=== PATIENT | male | born 1945 | race Caucasian/White ===

== ENCOUNTER 2017-10-29 10:12 | Emergency (ER) | payer BC ==
[~2017-10-29] VITALS: Ht 185.4 cm; Wt 117.9 kg
[~2017-10-29 10:12] MED LIST: ALBUTEROL INH INH; CARBIDOPA/LEVO1 TA1 PO; CARDIZEM CD120 MG PO; COUMADIN 5 MG TA5 M1 PO; COZAAR100 MG PO; DIOVAN; FLOMAX0.4 MG PO; GLUCOTROL XL2.5 MG; GLUMETZA500; HYTRIN 5 M5 MG/1 CAP PO; KEFLEX500 MG PO; LANOXIN 0.250.25 MG PO; LEXAPRO 10 MG T10 M2 PO; LOPRESSOR 50 MG50 M1; LOPRESSOR 50 MG50 M1 PO; LOVASTAT40; LYRICA 75 MG CA75 MG PO; METFORMIN HCL500 M2 PO; MEVACOR40 MG PO; PROSCAR 5MG TABL5 MG PO; REQUIP 1 MG TABL1 M1 PO; SINEMET 25-1001 EAC1 PO; TOPROL XL50 MG PO; TRIAMTERENE-HC1 EAC1 PO; VERAPAMIL HCL180 M4 PO; VITAMIN B-12500 MCG PO
[2017-10-29 11:03] LABS: ABSOLUTE LYMPHOCYTES 2.2 thou/uL (0.8-5.3); ABSOLUTE MONOCYTES 0.4 thou/uL (0.0-1.2); ABSOLUTE NEUTROPHILS 3.5 thou/uL (1.6-8.1); BASOPHILS 0.4 %; EOSINOPHILS 0.7 %; HEMATOCRIT 41.6 % (42.0-52.0); HEMOGLOBIN 14.3 gm/dL (14.0-18.0); LYMPHOCYTES 35.5 %; MCH 30.9 pg (26.0-34.0); MCHC 34.3 g/dL (28.0-37.0); MONOCYTES 7.2 %; MPV 8.5 fl. (7.2-11.1); NUCLEATED RBCS 0 /100WBC; PLATELET COUNT* 186 thou/uL (150-400); POLYS 56.2 %; RBC 4.63 mil/uL (4.50-6.00); RDW-CV 14.1 % (10.5-14.5); WBC 6.2 thou/uL (4.0-11.0)
[2017-10-29 11:09] LABS: ANION GAP 12 mmol/L (7-16); BUN 17 mg/dL (7-18); CHLORIDE 106 mmol/L (98-107); CO2 24 mmol/L (21-32); CREATININE 0.7 mg/dL (0.6-1.3); GLUCOSE 135 mg/dL (70-99); POTASSIUM 3.5 mmol/L (3.5-5.1); SODIUM 142 mmol/L (136-145)
[2017-10-29 11:11] LABS: PROTIME 28.4 Seconds (9.20-11.50)
[2017-10-29 11:21] LABS: ALBUMIN 3.8 g/dL (3.4-5.0); ALKALINE PHOSPHATASE 70 U/L (46-116); NT-PRO BRAIN NAT PEPTIDE 531 pg/mL (<300); SGOT 20 U/L (15-37); SGPT 13 U/L (30-65); TOTAL BILIRUBIN 0.6 mg/dL (<0.1-1.0); TOTAL PROTEIN 7.5 g/dL (6.4-8.2); TROPONIN-I LEVEL <0.06 ng/mL (<0.06)
[2017-10-29 12:17] LABS: URINE BILIRUBIN NEGATIVE (Negative); URINE BLOOD NEGATIVE (Negative); URINE CLARITY CLEAR; URINE COLOR YELLOW; URINE GLUCOSE-RANDOM TRACE (Negative); URINE KETONES NEGATIVE (Negative); URINE LEUKOCYTES-REFLEX NEGATIVE (Negative); URINE NITRITE-REFLEX NEGATIVE (Negative); URINE PROTEIN TRACE (Negative)
[2017-10-29 13:44] VITALS: BP 130/81
--- NOTE | 2017-10-29 17:31 | EKG ---
[place] [address] ELECTROCARDIOGRAM REPORT Name: HANG ALFORD [id number] Admission: 10/29/17 Attend Phys: Discharge: 10/29/17 Date of : 47 Report #: [id number] THIS REPORT FOR: //name// [facility] ED Test Date: 2017-10-29 Test Time: 10:25:46 Pat Name: HANG ALFORD Department: Room: Gender: M Computer Systems Technician: Kenzie SANCHES : 1945 Requested By: Jg Solis Order Number: [id number] MD: Sukhjinder Liu Measurements Intervals [place] Rate: 94 P: [place]: QRS: 0 QRSD: 117 T: 70 QT: 380 QTc: 476 Interpretive Statements Atrial fibrillation Nonspecific intraventricular conduction delay Compared to ECG 04/30/2017 19:31:13 No significant changes Electronically Signed On 10-29-2017 17:31:34 FINISHING TECHNICIAN by Sukhjinder Liu [email or web address] <ELECTRONICALLY SIGNED> By: Sukhjinder Liu MD, [facility] 10/29/17 1731 1025 1025 Sukhjinder Liu MD, FACC /EPI
== END 2017-10-29 13:45 | disposition home or self-care (01) ==
LOC: M.ERS 10:12
PROVIDERS: Physician Assistant
DX: R06.02 Shortness of breath (principal); M79.622 Pain in left upper arm; I10 Essential (primary) hypertension; E11.9 Type 2 diabetes mellitus without complications; I48.91 Unspecified atrial fibrillation; Z98.890 Other specified postprocedural states

== ENCOUNTER 2017-11-27 21:15 | Emergency (ER) | payer BC ==
[~2017-11-27] VITALS: Ht 182.9 cm; Wt 99.8 kg
[2017-11-27 21:48] LABS: ABSOLUTE EOSINOPHILS 0.1 thou/uL (0.0-0.7); ABSOLUTE LYMPHOCYTES 2.6 thou/uL (0.8-5.3); ABSOLUTE MONOCYTES 0.5 thou/uL (0.0-1.2); BASOPHILS 0.6 %; EOSINOPHILS 1.9 %; HEMATOCRIT 40.3 % (42.0-52.0); HEMOGLOBIN 13.7 gm/dL (14.0-18.0); LYMPHOCYTES 41.4 %; MCH 31.1 pg (26.0-34.0); MCHC 34.1 g/dL (28.0-37.0); MCV 91.2 fL (80.0-100.0); MONOCYTES 8.5 %; MPV 8.4 fl. (7.2-11.1); NUCLEATED RBCS 0 /100WBC; PLATELET COUNT* 178 thou/uL (150-400); POLYS 47.6 %; RBC 4.41 mil/uL (4.50-6.00); RDW-CV 14.3 % (10.5-14.5); WBC 6.4 thou/uL (4.0-11.0)
[2017-11-27 22:00] LABS: ANION GAP 7 mmol/L (7-16); BUN 17 mg/dL (7-18); CALCIUM 8.6 mg/dL (8.5-10.1); CHLORIDE 106 mmol/L (98-107); CO2 31 mmol/L (21-32); CREATININE 0.8 mg/dL (0.6-1.3); GLUCOSE 147 mg/dL (70-99); POTASSIUM 3.9 mmol/L (3.5-5.1); SODIUM 144 mmol/L (136-145)
[2017-11-27 22:07] LABS: INR 1.8; PROTIME 17.8 Seconds (9.20-11.50)
[2017-11-27 22:14] LABS: ALBUMIN 3.5 g/dL (3.4-5.0); ALKALINE PHOSPHATASE 64 U/L (46-116); LIPASE 138 U/L (73-393); NT-PRO BRAIN NAT PEPTIDE 666 pg/mL (<300); SGOT 9 U/L (15-37); SGPT 8 U/L (30-65); TOTAL BILIRUBIN 0.4 mg/dL (<0.1-1.0); TOTAL PROTEIN 6.9 g/dL (6.4-8.2); TROPONIN-I LEVEL <0.06 ng/mL (<0.06)
[2017-11-27 23:27] LABS: URINE COLOR YELLOW
[2017-11-27 23:28] LABS: URINE BILIRUBIN NEGATIVE (Negative); URINE BLOOD NEGATIVE (Negative); URINE CLARITY CLEAR; URINE GLUCOSE-RANDOM NEGATIVE (Negative); URINE KETONES TRACE (Negative); URINE LEUKOCYTES-REFLEX NEGATIVE (Negative); URINE NITRITE-REFLEX NEGATIVE (Negative); URINE PROTEIN NEGATIVE (Negative); URINE SPECIFIC GRAVITY 1.025 (1.005-1.030)
[2017-11-27 23:53] VITALS: BP 120/85
--- NOTE | 2017-11-28 16:35 | EKG ---
[place] [address] ELECTROCARDIOGRAM REPORT Name: HANG ALFORD [id number] Admission: 11/27/17 Attend Phys: Discharge: 11/27/17 Date of : 47 Report #: [id number] THIS REPORT FOR: //name// [facility] ED Test Date: 2017-11-27 Test Time: 21:25:00 Pat Name: HANG ALFORD Department: Room: Gender: M Infantry Operations Specialist: : 1945 Requested By: Olga Lidia Montalvo Order Number: [id number] MD: Claudio Bradley Measurements Intervals [place] Rate: 85 P: [place]: QRS: -5 QRSD: 133 T: 44 QT: 409 QTc: 487 Interpretive Statements Atrial fibrillation Nonspecific intraventricular conduction delay Compared to ECG 10/29/2017 10:25:46 No significant changes Electronically Signed On 11-28-2017 16:35:23 BIOLOGY LABORATORY ASSISTANT by Claudio Bradley [email or web address] <ELECTRONICALLY SIGNED> By: Sharonda Bradley MD, [facility] 11/28/17 1635 24 Sharonda Bradley MD, FACC /EPI
== END 2017-11-27 23:53 | disposition home or self-care (01) ==
LOC: M.ERS 21:15
PROVIDERS: Emergency Medicine
DX: F41.9 Anxiety disorder, unspecified (principal); I10 Essential (primary) hypertension; E11.9 Type 2 diabetes mellitus without complications; I48.91 Unspecified atrial fibrillation; G20 Parkinson's disease; G25.81 Restless legs syndrome

== ENCOUNTER 2018-01-08 19:39 | Emergency (ER) | payer BC ==
[~2018-01-08] VITALS: Ht 185.4 cm; Wt 115.7 kg
[2018-01-08] MEDS ORDERED: ATIVAN1 MG PO (19:47)
[2018-01-08 20:20] LABS: ABSOLUTE EOSINOPHILS 0.1 thou/uL (0.0-0.7); ABSOLUTE LYMPHOCYTES 2.7 thou/uL (0.8-5.3); ABSOLUTE MONOCYTES 0.5 thou/uL (0.0-1.2); ABSOLUTE NEUTROPHILS 3.3 thou/uL (1.6-8.1); BASOPHILS 0.6 %; EOSINOPHILS 1.5 %; HEMATOCRIT 38.7 % (42.0-52.0); HEMOGLOBIN 13.4 gm/dL (14.0-18.0); LYMPHOCYTES 40.8 %; MCH 31.2 pg (26.0-34.0); MCHC 34.6 g/dL (28.0-37.0); MCV 90.2 fL (80.0-100.0); MONOCYTES 7.3 %; MPV 8.1 fl. (7.2-11.1); NUCLEATED RBCS 0 /100WBC; PLATELET COUNT* 177 thou/uL (150-400); POLYS 49.8 %; RBC 4.28 mil/uL (4.50-6.00); RDW-CV 13.9 % (10.5-14.5); WBC 6.7 thou/uL (4.0-11.0)
[2018-01-08 20:47] LABS: ANION GAP 9 mmol/L (7-16); BUN 13 mg/dL (7-18); CALCIUM 8.7 mg/dL (8.5-10.1); CHLORIDE 104 mmol/L (98-107); CO2 29 mmol/L (21-32); CREATININE 0.8 mg/dL (0.6-1.3); GLUCOSE 108 mg/dL (70-99); POTASSIUM 3.7 mmol/L (3.5-5.1); SODIUM 142 mmol/L (136-145)
[2018-01-08 20:58] LABS: ALBUMIN 3.7 g/dL (3.4-5.0); ALKALINE PHOSPHATASE 68 U/L (46-116); NT-PRO BRAIN NAT PEPTIDE 533 pg/mL (<300); SGOT 18 U/L (15-37); SGPT 8 U/L (30-65); TOTAL BILIRUBIN 0.7 mg/dL (<0.1-1.0); TOTAL PROTEIN 7.1 g/dL (6.4-8.2); TROPONIN-I LEVEL <0.06 ng/mL (<0.06)
[2018-01-08 21:16] LABS: INR 4.7
[2018-01-08] MEDS ORDERED: PREDNISONE 20 M20 M1 PO (21:24)
[2018-01-08] MEDS ORDERED: SPACERADULT INH (21:24)
[2018-01-08] MEDS ORDERED: CEFUROXIME250 MG PO (21:24)
[2018-01-08] MEDS ORDERED: PROAIR HFA8.5 GM INH (21:24)
[2018-01-08 21:42] VITALS: BP 145/76
--- NOTE | 2018-01-09 12:38 | EKG ---
[place] [address] ELECTROCARDIOGRAM REPORT Name: HANG ALFORD Room: [facility]#: [id number] Admission: 01/08/18 Attend Phys: Discharge: 01/08/18 Date of : 47 Report #: [id number] THIS REPORT FOR: //name// [facility] ED Test Date: 2018-01-08 Test Time: 19:50:29 Pat Name: HANG ALFORD Department: Room: Gender: M Mixer Helper: : 1945 Requested By: Luisana Paz Order Number: [id number] MD: Christos Frausto Measurements Intervals [place] Rate: 70 P: [place]: QRS: -5 QRSD: 137 T: 47 QT: 438 QTc: 473 Interpretive Statements Atrial fibrillation Nonspecific intraventricular conduction delay Baseline wander in lead(s) V6 Compared to ECG 11/27/2017 21:25:00 No significant changes Electronically Signed On 01-09-2018 12:38:20 CDT by Christos Frausto [email or web address] <ELECTRONICALLY SIGNED> By: Christos Frausto MD, [facility] 01/09/18 1238 1950 1950 Christos Frausto MD, [facility] /EPI
== END 2018-01-08 21:44 | disposition home or self-care (01) ==
LOC: M.ERS 19:39
PROVIDERS: Nurse Practitioner Family
DX: J18.9 Pneumonia, unspecified organism (principal); R79.1 Abnormal coagulation profile; I10 Essential (primary) hypertension; E11.9 Type 2 diabetes mellitus without complications; I48.91 Unspecified atrial fibrillation; G20 Parkinson's disease; G25.81 Restless legs syndrome; F41.9 Anxiety disorder, unspecified

== ENCOUNTER 2018-09-28 14:44 | Observation (INO) | payer BC ==
[~2018-09-28] VITALS: Ht 185.4 cm; Wt 121.1 kg
[~2018-09-28 14:44] MED LIST changes: +ATIVAN1 MG PO; +CEFUROXIME250 MG PO; +PREDNISONE 20 M20 M1 PO; +PROAIR HFA8.5 GM INH; +SPACERADULT INH
[2018-09-28 14:55] VITALS: BP 150/89
[2018-09-28 15:38] LABS: ABSOLUTE LYMPHOCYTES 1.5 thou/uL (0.8-5.3); ABSOLUTE MONOCYTES 0.4 thou/uL (0.0-1.2); ABSOLUTE NEUTROPHILS 4.1 thou/uL (1.6-8.1); BASOPHILS 0.5 %; EOSINOPHILS 0.3 %; HEMATOCRIT 39.6 % (42.0-52.0); HEMOGLOBIN 13.6 gm/dL (14.0-18.0); MCH 31.2 pg (26.0-34.0); MCHC 34.4 g/dL (28.0-37.0); MCV 90.7 fL (80.0-100.0); MONOCYTES 6.3 %; MPV 8.3 fl. (7.2-11.1); NUCLEATED RBCS 0 /100WBC; PLATELET COUNT* 206 thou/uL (150-400); POLYS 67.9 %; RBC 4.37 mil/uL (4.50-6.00); RDW-CV 14.8 % (10.5-14.5)
[2018-09-28 15:47] LABS: CALCIUM 8.8 mg/dL (8.5-10.1); CREATININE 0.8 mg/dL (0.6-1.3); INR 3.3
[2018-09-28 15:57] LABS: ALBUMIN 3.3 g/dL (3.4-5.0); TOTAL BILIRUBIN 0.6 mg/dL (<0.1-1.0); TOTAL PROTEIN 6.7 g/dL (6.4-8.2)
[2018-09-28 16:37] LABS: URINE BILIRUBIN NEGATIVE (Negative); URINE BLOOD 3+ (Negative); URINE CLARITY CLEAR; URINE COLOR YELLOW; URINE GLUCOSE-RANDOM NEGATIVE (Negative); URINE KETONES NEGATIVE (Negative); URINE LEUKOCYTES-REFLEX NEGATIVE (Negative); URINE NITRITE-REFLEX NEGATIVE (Negative); URINE PROTEIN NEGATIVE (Negative); URINE SPECIFIC GRAVITY 1.025 (1.005-1.030)
[2018-09-28 16:47] LABS: BACTERIA-REFLEX 1-9 Few /HPF (None Seen); MUCUS 4-6 Moderate strn/LPF (None Seen); SQUAMOUS 4-10 Moderate /LPF (0-3); URINE WBC-REFLEX 0-5 Rare /HPF (0-5)
[2018-09-28 20:50] VITALS: BP 174/102
[2018-09-28 21:30] VITALS: BP 167/96
[2018-09-28] MEDS ORDERED: BENADRYL25 MG PO (21:31)
[2018-09-28] MEDS ORDERED: TYLENOL EXTRA500 MG PO (21:33)
[2018-09-28] MEDS ORDERED: LYRICA 50 MG50 MG PO (22:28)
--- NOTE | 2018-09-29 04:12 | NUR ---
RECEIVED REPORT FROM ANGI CALLE AT 2029. PT ARRIVED TO UNIT VIA CART AT 2100. NURSING ASSESSMENT COMPLETED. PT ORIENTED TO ROOM AND CALL LIGHT. PT C/O PAIN. MEDICATIONS ADMINISTERED PER EMAR. PT ASLEEP DURING PAIN REASSESSMENT. HOURLY ROUNDING COMPLETED. PT UP STAND BY WITH CANE. CALL LIGHT WITHIN REACH.
[2018-09-29 05:24] LABS: CALCIUM 8.8 mg/dL (8.5-10.1); CREATININE 0.7 mg/dL (0.6-1.3); POTASSIUM 3.2 mmol/L (3.5-5.1)
[2018-09-29 07:55] VITALS: BP 114/66
--- NOTE | 2018-09-29 10:30 | NUR ---
SW met with pt to complete initial assessment, introduce self, and SW role. Pt alert, oriented. Pt used to live with his son but now pt lives alone in a house of his own. Both he and his son live in [place]. Pt girlfriend also supportive. Pt has a cane. Pt maybe open to HH at dc if needed. SW to continue to follow to assist with safe dc planning.
[2018-09-29 16:00] VITALS: BP 131/73
--- NOTE | 2018-09-29 17:43 | NUR ---
PATIENT RESTING UP IN CHIAR. PATIENT IS UP STANDBY ASSIST TO BATHROOM. PATIENT WORKED WITH PHYSICAL AND OCCUPATIONAL THERAPY THIS AFTERNOON. PATIENT HAS GOOD APPETITE. PATIENT HAS HAD COMPLAINTS OF LOWER BACK PAIN TREATED ADEQUATELY WITH FLEXERIL. PATIENT DENIES ANY NEEDS AT THIS TIME. CALL LIGHT WITHIN REACH. WILL CONTINUE TO MONITOR.
[2018-09-29 20:00] VITALS: BP 141/69
[2018-09-30 04:16] LABS: HEMOGLOBIN 12.4 gm/dL (14.0-18.0); MCH 32.1 pg (26.0-34.0); MCHC 34.5 g/dL (28.0-37.0); MCV 93.1 fL (80.0-100.0); MPV 8.3 fl. (7.2-11.1); RBC 3.87 mil/uL (4.50-6.00); RDW-CV 15.1 % (10.5-14.5); WBC 6.1 thou/uL (4.0-11.0)
[2018-09-30 04:20] LABS: INR 2.3; PROTIME 23.3 Seconds (9.20-11.50)
[2018-09-30 04:26] LABS: CALCIUM 8.5 mg/dL (8.5-10.1); CREATININE 0.6 mg/dL (0.6-1.3); POTASSIUM 3.4 mmol/L (3.5-5.1)
--- NOTE | 2018-09-30 05:37 | NUR ---
ASSUMED PT CARE AT 1900, PT IS A&OX4, PT DENIES ANY PAIN OR NEEDS AT THIS TIME. RESTING IN BED. PT IS ON RA SATTING MID TO HIGH 90'S. BED IN LOW POSITION, CALL LIGHT IN REACH, BED ALARM ON, YELLOW ARM BAND AND SOCKS IN PLACE. HOURLY ROUNDING COMPLETED FOR PT SAFETY.
[2018-09-30 08:15] VITALS: BP 132/74
[2018-09-30] MEDS ORDERED: FLEXERIL PO (12:37)
--- NOTE | 2018-09-30 12:42 | NUR ---
SW met with pt to discuss dc planning. Pt requesting preference of [facility] services follow up at dc. SW to continue to follow to assist with finalizing safe dc planning and faxing referral and orders to [facility].
[2018-09-30 12:48] VITALS: BP 132/74
--- NOTE | 2018-09-30 14:10 | NUR ---
PATIENT DISCHARGED TO HOME WITH HOME HEALTH. DISCHARGE PAPERS REVIEWED AND SIGNED. PRESCRIPTION AND INFORMATION SHEETS GIVEN. IV REMOVED. PATIENT ASSISTED WITH GETTING DRESSED. HOME MEDICATIONS AND BELONGINGS RETURNED. PATIENT DENIES ANY FURTHER NEEDS. PATIENT TAKEN BY WHEELCHAIR TO EXIT. LEFT BY OWN VEHICLE.
--- NOTE | 2018-10-01 09:16 | NUR ---
PT. DISCHARGED TO HOME WITH HOME HEALTH PRIOR TO O.T. EVAL. PLEASE ORDER FURTHER O.T. SERVICES IF NEEDED.
== END 2018-09-30 14:10 | disposition home health service (06) ==
LOC: M.ERS 14:44 → M.TBA-ER 16:54 → M.3W 16:54
PROVIDERS: Family Medicine; Nurse Practitioner Family; ADMIT Internal Medicine
DX: M54.5 Low back pain (principal); I48.91 Unspecified atrial fibrillation; G20 Parkinson's disease; G25.81 Restless legs syndrome; F41.9 Anxiety disorder, unspecified; I10 Essential (primary) hypertension; R01.1 Cardiac murmur, unspecified; G89.29 Other chronic pain; E11.9 Type 2 diabetes mellitus without complications; M19.90 Unspecified osteoarthritis, unspecified site; Z79.899 Other long term (current) drug therapy; Z23 Encounter for immunization

== ENCOUNTER 2018-10-13 12:18 | Inpatient (IN) | payer BC ==
[~2018-10-13] VITALS: Ht 185.4 cm; Wt 122.5 kg
[~2018-10-13 12:18] MED LIST changes: +BENADRYL25 MG PO; +FLEXERIL PO; +LYRICA 50 MG50 MG PO; +TYLENOL EXTRA500 MG PO
[2018-10-13 12:23] VITALS: BP 163/95
[2018-10-13 15:35] LABS: URINE BILIRUBIN NEGATIVE (Negative); URINE BLOOD NEGATIVE (Negative); URINE CLARITY CLEAR; URINE COLOR YELLOW; URINE GLUCOSE-RANDOM NEGATIVE (Negative); URINE KETONES NEGATIVE (Negative); URINE LEUKOCYTES-REFLEX NEGATIVE (Negative); URINE PROTEIN NEGATIVE (Negative); URINE SPECIFIC GRAVITY >= 1.030 (1.005-1.030)
[2018-10-13 15:38] LABS: URINE NITRITE-REFLEX POSITIVE (Negative)
[2018-10-13 15:44] LABS: ABSOLUTE LYMPHOCYTES 1.2 thou/uL (0.8-5.3); ABSOLUTE MONOCYTES 0.5 thou/uL (0.0-1.2); ABSOLUTE NEUTROPHILS 6.4 thou/uL (1.6-8.1); BASOPHILS 0.6 %; EOSINOPHILS 0.2 %; HEMATOCRIT 38.2 % (42.0-52.0); HEMOGLOBIN 12.9 gm/dL (14.0-18.0); LYMPHOCYTES 14.6 %; MCHC 33.8 g/dL (28.0-37.0); MCV 91.7 fL (80.0-100.0); MONOCYTES 6.4 %; MPV 8.6 fl. (7.2-11.1); NUCLEATED RBCS 0 /100WBC; PLATELET COUNT* 194 thou/uL (150-400); POLYS 78.2 %; RBC 4.16 mil/uL (4.50-6.00); WBC 8.2 thou/uL (4.0-11.0)
[2018-10-13 15:45] LABS: SQUAMOUS NONE SEEN /LPF (0-3); URINE WBC-REFLEX None Seen /HPF (0-5)
[2018-10-13 15:46] LABS: BACTERIA-REFLEX 1-9 Few /HPF (None Seen); CASTS None Seen /LPF (None Seen); CRYSTALS None Seen /LPF (None Seen); URINE RBC 0-2 Rare /HPF (0-2)
[2018-10-13 16:04] LABS: CALCIUM 8.6 mg/dL (8.5-10.1); CREATININE 0.6 mg/dL (0.6-1.3); POTASSIUM 3.8 mmol/L (3.5-5.1)
[2018-10-13 16:09] LABS: ALBUMIN 3.5 g/dL (3.4-5.0); TOTAL BILIRUBIN 0.7 mg/dL (<0.1-1.0); TOTAL PROTEIN 6.8 g/dL (6.4-8.2)
[2018-10-13 16:56] VITALS: BP 148/77
[2018-10-13 17:39] VITALS: BP 152/81
--- NOTE | 2018-10-13 18:26 | NUR ---
PATIENT SITTING UP EATING DINNER AT THIS TIME. CHANGED INTO HOSPITAL GOWN. DR FRANCE SEEN PATIENT, NO PLANS FOR SURGERY AT THIS TIME, WILL KEEP PATIENT IN SLING AND SEE HOW PATIENT DOES. PAIN IS 2/10 AT THIS TIME BUT IS COMFORTABLE. NO OTHER COMPLAINTS. FALL PRECAUTIONS IN PLACE. CALL LIGHT IN REACH, BED IN LOW POSITION.
[2018-10-13 19:30] VITALS: BP 142/71
[2018-10-13 19:42] LABS: INR 2.4; PROTIME 24.1 Seconds (9.20-11.50)
[2018-10-14 03:41] LABS: HEMATOCRIT 33.9 % (42.0-52.0); HEMOGLOBIN 11.9 gm/dL (14.0-18.0); MCH 31.8 pg (26.0-34.0); MCHC 35.1 g/dL (28.0-37.0); MCV 90.7 fL (80.0-100.0); MPV 8.5 fl. (7.2-11.1); RBC 3.73 mil/uL (4.50-6.00); RDW-CV 15.2 % (10.5-14.5); WBC 6.4 thou/uL (4.0-11.0)
[2018-10-14 03:53] LABS: CALCIUM 8.2 mg/dL (8.5-10.1); CREATININE 0.6 mg/dL (0.6-1.3); MAGNESIUM 1.7 mg/dL (1.8-2.4); POTASSIUM 3.6 mmol/L (3.5-5.1)
[2018-10-14 05:00] VITALS: BP 146/71
--- NOTE | 2018-10-14 06:20 | NUR ---
PT PROGRESSING TOWARD GOALS. PT MAINTAINED LEFT ARM IN SLING FOR DURATION OF SHIFT. PT RECIEVING SCHEDULED FLEXARIL AND PRN FENTANYL WITH GOOD RESULTS. VITAL SIGNS WITHIN NORMAL LIMITS, WILL CONTINUE TO MONITOR.
[2018-10-14 08:00] VITALS: BP 129/70
--- NOTE | 2018-10-14 10:58 | CON ---
[address] [address] CONSULTATION Name: HANG ALFORD Room: [address] IN .R.#: [id number] Admission: 10/13/18 Attend Phys: Artem Rockwell MD Discharge: Date of : 47 Report #: [id number] THIS REPORT FOR: //name// CC: FAM unknown Artem Rockwell DATE OF SERVICE: 10/13/2018 HISTORY OF PRESENT ILLNESS: This 72-year-old male is seen complaining of acute pain of his left shoulder. He related that he fell getting into his shower at his residence sustaining his injury. He stated that he is a little unsteady on his feet secondary to Parkinson's disease. He feels that his Parkinson's disease is slowly getting worse. He presented to the Emergency Room where x-rays revealed a comminuted left distal clavicle fracture. He was placed into a sling. His past history, family history and review of systems were reviewed and are recorded in his medical record. PHYSICAL EXAMINATION: Today revealed marked tenderness about the left shoulder. He complained of pain upon any motion or manipulation. His x-rays were reviewed. It was felt that his comminuted distal clavicle fracture should be treated conservatively if at all possible. I would only favor operative treatment if his fracture is displaced significantly in the future. He will be followed while hospitalized and initially will be treated conservatively. He will be followed until his fracture has healed. DIAGNOSES: Comminuted left distal clavicle fracture, Parkinson's disease. Thank you very much for the opportunity of seeing the patient. <ELECTRONICALLY SIGNED> By: Aravind Foreman MD 10/14/18 1058 1758 0100Joanjana Foreman MD /nt
[2018-10-14 12:44] VITALS: BP 113/76
[2018-10-14 15:55] VITALS: BP 126/80
--- NOTE | 2018-10-14 18:35 | NUR ---
PT IS ALERT AND ORIENTED X 4. DENIES NAUSEA. RECEIVED PO MEDICATIONS FOR PAIN CONTROL. PT UP TO CHAIR WITH SBA X 2. USED SLING IN MORNING AND SHOULDER IMMOBILIZER PLACED IN AFTERNOON. IV PATENT. HOURLY ROUNDS MAINTAINED. CALL LIGHT WITHIN REACH.
[2018-10-14 21:00] VITALS: BP 156/83
[2018-10-15 05:11] LABS: HEMATOCRIT 34.4 % (42.0-52.0); HEMOGLOBIN 11.8 gm/dL (14.0-18.0); MCH 31.7 pg (26.0-34.0); MCHC 34.1 g/dL (28.0-37.0); MPV 8.4 fl. (7.2-11.1); RBC 3.7 mil/uL (4.50-6.00); RDW-CV 14.8 % (10.5-14.5); WBC 6.8 thou/uL (4.0-11.0)
[2018-10-15 05:16] LABS: INR 2.8; PROTIME 28.5 Seconds (9.20-11.50)
--- NOTE | 2018-10-15 06:49 | NUR ---
PATIENT HAS SLEPT WELL THROUGHOUT THE NIGHT. VSS ON RA. PAIN CONTROLLED WITH ORAL PAIN MEDICATION AND CHARTED. IMMOBILIZER TO LEFT ARM IS IN PLACE. PATIENT USING BEDSIDE URINAL DURING THE NIGHT. IV IN LEFT AC-SL. PATIENT INSTRUCTED TO USE CALL LIGHT WHEN NEEDING ASSISTANCE. HOURLY ROUNDS MADE. WILL CONTINUE WITH PLAN OF CARE AND NURSING TO MONITOR.
[2018-10-15 09:52] VITALS: BP 107/83
--- NOTE | 2018-10-15 11:30 | NUR ---
SPOKE WITH PT. HE WAS ALERT AND ORIENTED. STATED HE LIVES ALONE. WAS GETTING IN TO SHOWER WHEN HE FELL ONTO HIS LEFT SIDE AND FX HIS CLAVICLE. HE WOULD LIKE TO GO TO A SNF IF POSSIBLE UNTIL HE GETS STEADIER ON HIS FEET. FIRST CHOICE WOULD BE [facility] AND SECOND WOULD BE [facility]. MADE REFERRALS TO BOTH. WILL WAIT TO HEAR BACK FROM THEM.
[2018-10-15 12:00] VITALS: BP 136/81
--- NOTE | 2018-10-15 18:00 | NUR ---
ASSUMED CARE OF PATIENT AFTER REPORT AT APPROX 0730. ALERT AND ORIENTED X4. VSS ON ROOM AIR. NO COMPLAINTS OF PAIN, NAUSEA, OR SOA. PATIENT WORKED WITH THERAPIES TODAY. THIS AM HE REQUESTED TO HAVE THE IMMOBILIZER REMOVED AND USE THE SLING INSTEAD. CALLED DR FRANCE AND HE SAID THAT IT WAS OK TO REMOVE IMMOBILIZER AND HAVE HIM WEAR THE SLING. CASE MANAGEMENT HAS REFERRAL IN FOR SKILLED PLACEMENT, AWAITING INSURANCE APPROVAL. PATIENT REPEATEDLY CALLING OUT THROUGHOUT ENTIRE SHIFT TO USE COMMODE FOR A BOWEL MOVEMENT BUT HAS NOT BEEN SUCCESSFUL TODAY. UP TO CHAIR TODAY WITH GAIT BELT AND 1-2 STAFF. HOURLY ROUNDS COMPLETED. FALL PRECAUTIONS IN PLACE AND PATIENT USES CALL LIGHT APPROPRIATELY. NURSING WILL CONTINUE TO MONITOR.
[2018-10-15 20:00] VITALS: BP 143/78
--- NOTE | 2018-10-16 07:29 | NUR ---
Alert and oriented x 4. He has a L clavical fracture, it is in a sling and up on a pillow. He refused an ice pack. I did explain to him that he should have it in the immobilizer to heal better and faster. He had a pain pill and muscle relaxer at bedtime and he has slept all night.
[2018-10-16 07:45] VITALS: BP 161/82
--- NOTE | 2018-10-16 17:58 | NUR ---
ALERT AND ORIENTED X4. UP WITH ASSIST X1 WITH WALKER AND GAIT BELT. IV IS PATENT AND SALINE LOCKED. PAIN BEING MANAGED WITH PO PAIN MEDICATION. DENIES NAUSEA. RECIEVED LAXATIVE THIS AM WITH NO RESULTS AT THIS TIME. TOLERATING DIET. BLOOD SUGARS MANAGED PER SLIDING SCALE. VSS ON ROOM AIR. HOURLY ROUNDS HAVE BEEN MAINTAINED THROUGHOUT SHIFT. CALL LIGHT IS WITHIN REACH. NURSING WILL CONTINUE TO MONITOR.
[2018-10-16 20:45] VITALS: BP 166/71
--- NOTE | 2018-10-17 06:06 | NUR ---
PATIENT HAS BEEN RESTLESS OFF AND ON DURING THE NIGHT. PATIENT HAVING RESTLESS LEG DURING THE NIGHT. MEDICATIONS GIVEN ORDERED AND CHARTED. VSS ON RA. PATIENT IS UP WITH ASSIST X 2 WITH GAITBELT AND CANE TO [facility]. PATIENT REFUSES TO WEAR IMMOBILIZER AND REQUESTED TO UNDO SLING WHILE IN BED. PATIENT USES BEDSIDE URINAL AT NIGHT. IV IN LEFT AC-SL. PATIENT INSTRUCTED TO USE CALL LIGHT WHEN NEEDING ASSISTANCE. FALL PRECAUTIONS IN PLACE AND HOURLY ROUNDS MADE. WILL CONTINUE WITH PLAN OF CARE AND NURSING TO MONITOR.
[2018-10-17 08:50] VITALS: BP 159/82
[2018-10-17 12:23] LABS: INR 3.5; PROTIME 35.4 Seconds (9.20-11.50)
[2018-10-17 16:45] VITALS: BP 134/77
--- NOTE | 2018-10-17 18:25 | NUR ---
ALERT AND OREINTED X4. UP WITH ASSIST X1-2 WITH GAIT BELT AND CANE. IV IS PATENT AND SALINE LOCKED. DENIES NEED FOR PAIN MEDICATION THROUGHOUT SHIFT. DENIES NAUSEA. TOLERATING DIET. SLING IN PLACE. NWB STATUS MAINTAINED THROUGHOUT SHIFT. VSS ON ROOM AIR. HOURLY ROUNDS HAVE BEEN MAINTAINED THROGHOUT SHIFT. CALL LIGHT IS WITHIN REACH. NURSING WILL CONTINUE TO MONITOR.
[2018-10-17 20:40] VITALS: BP 151/76
[2018-10-18 04:14] LABS: INR 3.4; PROTIME 34.7 Seconds (9.20-11.50)
--- NOTE | 2018-10-18 06:11 | NUR ---
PATIENT HAS SLEPT WELL THROUGHOUT THE NIGHT. VSS ON RA. NO C/O PAIN. PATIENT STILL REFUSING TO WEAR IMMOBILIZER BUT DOES WEAR SLING ON LEFT ARM. IV IN LEFT AC-SL. PATIENT INSTRUCTED TO USE CALL LIGHT WHEN NEEDING ASSISTANCE. HOURLY ROUNDS MADE. WILL CONTINUE WITH PLAN OF CARE AND NURSING TO MONITOR.
--- NOTE | 2018-10-18 11:00 | NUR ---
CONTINUE TO FOLLOW, SPOKE ANMOL TYSON/HOSEA GUTEIRREZ. FAXED UPDATED CLINICAL TO HER. SHE IS STILL WAITING ON INSURANCE AUTH FOR SNF. ORDERS FOR DC NOTED, ALSO FAXED TO HOSEA GUTIERREZ. UPDATED PT ON AUTH PENDING. MARBELLA WILL CONTACT CM ONCE THEY HAVE AUTH AND CAN ACCEPT PT. ZACH GUTIERREZ [phone] FAX [phone]
--- NOTE | 2018-10-18 17:40 | NUR ---
PATIENT ALERT AND ORIENTED X 4. VITAL SIGNS STABLE ON ROOM AIR. AFEBRILE. UP WITH ASSISTANCE OF ONE. SAT UP IN CHAIR FOR MOST OF THE SHIFT. IV PATENT AND SALINE LOCKED. DENIES PAIN AND NAUSEA AT THIS TIME. FALL PRECAUTIONS IN PLACE AND BED ALARM ON. HOURLY ROUNDS MAINTAINED THROUGHOUT THE SHIFT. CALL LIGHT WITHIN REACH. NURSING WILL CONTINUE TO MONITOR.
[2018-10-18 20:20] VITALS: BP 162/86
[2018-10-19 04:20] LABS: PROTIME 40.1 Seconds (9.20-11.50)
--- NOTE | 2018-10-19 06:47 | NUR ---
PATIENT HAS SLEPT WELL THROUGHOUT THE NIGHT. VSS ON RA. NO C/O PAIN. PATIENT REQUESTED TO HAVE IMMOBILIZER REMOVED THIS AM. LEFT ARM IS CURRENTLY IN SLING. PATIENT IS UP TO CHAIR THIS AM. IV IN LEFT AC-SL. PATIENT INSTRUCTED TO USE CALL LIGHT WHEN NEEDING ASSISTANCE. HOURLY ROUNDS MADE. WILL CONTINUE WITH PLAN OF CARE AND NURSING TO MONITOR.
[2018-10-19 09:03] VITALS: BP 117/62
[2018-10-19 17:13] VITALS: BP 133/72
--- NOTE | 2018-10-19 17:30 | NUR ---
ASSUMED CARE OF PATIENT AFTER REPORT AT APPROX 0730. ALERT AND ORIENTED X4. VSS ON ROOM AIR. NO COMPLAINTS OF PAIN, NAUSEA, OR SOA. PATIENTS SHOULDER REMAINS IN SLING, REINFORCEMENT NEEDED TO MAINTAIN NON WEIGHT BEARING STATUS TO LEFT UPPER EXTREMITY. PATIENT UP WITH ASSIST OF 1-2 STAFF. VOIDING IN URINAL AND USING BEDSIDE COMMODE. HOURLY ROUNDS COMPLETED, FALL PRECAUTIONS IN PLACE, CALL LIGHT IN REACH, NURSING WILL CONTINUE TO MONITOR.
[2018-10-20 04:51] LABS: INR 4.3; PROTIME 43.4 Seconds (9.20-11.50)
--- NOTE | 2018-10-20 06:12 | NUR ---
PATIENT HAS SLEPT OFF AND ON DURING THE NIGHT BUT RESTLESS AT TIMES. VSS ON RA. NO C/O PAIN. SLING IN PLACE ON LEFT ARM. PATIENT IS UP WITH ASSIST X 1-2 WITH CANE TO CHAIR. PATIENT SPILLED URINAL DURING THE NIGHT AND COMPLETE BED CHANGE WAS PERFORMED AND NEW GOWN PLACED ON PATIENT. IV IN LEFT AC-SL. PATIENT INSTRUCTED TO USE CALL LIGHT WHEN NEEDING ASSISTANCE. HOURLY ROUNDS MADE. WILL CONTINUE WITH PLAN OF CARE AND NURSING TO MONITOR. FALL PRECAUTIONS IN PLACE.
[2018-10-20 09:22] VITALS: BP 134/75
--- NOTE | 2018-10-20 10:30 | NUR ---
SPOKE WITH SALENA/HOSEA GUTIERREZ. SHE SAID THEY ARE STILL WAITING ON INSURANCE AUTHORIZATION FOR SNF. THEY ONLY WAY THEY HAVE TO CONTACT AUTH DEPT.IS VIA EMAIL. SHE WILL HAVE HER BUSINESS OFFICE REACH OUT TO INS.AGAIN TODAY. SHE WILL CALL WHEN THEY HAVE AUTH. CM DISCUSSED WITH AND PT. PT.GETTING FRUSTRATED AT BEING HERE SO LONG.
[2018-10-20 10:46] VITALS: BP 134/75
[2018-10-20] MEDS ORDERED: PHENERGAN 25 MG25 M1 PO (11:05)
[2018-10-20] MEDS ORDERED: LAXATIVE5 M1 PO (11:06)
[2018-10-20] MEDS ORDERED: MILK OF MA2400 MG/10 PO (11:08)
[2018-10-20] MEDS ORDERED: MAALOX ADVANCE355 ML PO (11:09)
[2018-10-20] MEDS ORDERED: METFORMIN HCL500 MG PO (11:10)
[2018-10-20 16:00] VITALS: BP 140/72
--- NOTE | 2018-10-20 17:54 | NUR ---
ASSUMED CARE OF ADOLFO AFTER REPORT AT APPROX 0730. ALERT AND ORIENTED X4. ASSESSMENT COMPLETED AND CHARTED. VSS ON ROOM AIR. NO COMPLAINTS OF PAIN, NAUSEA, OR SOA. PATIENT UP WITH GAIT BELT AND CANE, USING THE RESTROOM TODAY. WORKED WITH THERAPIES TODAY. NEEDS REINFORCEMENT ON MAINTAINING NON WEIGHT BEARING STATUS OF LEFT UPPER EXTREMITY. PATIENT PREFERS TO WEAR SLING RATHER THAN IMMOBILIZER, DR FRANCE IS AWARE. HOURLY ROUNDS COMPLETED, FALL PRECAUTIONS IN PLACE. CALL LIGHT WITHIN REACH AND NURSING WILL CONTINUE TO MONITOR.
[2018-10-20 20:15] VITALS: BP 125/70
[2018-10-21 04:31] LABS: INR 4.1; PROTIME 41.1 Seconds (9.20-11.50)
--- NOTE | 2018-10-21 06:10 | NUR ---
PATIENT HAS BEEN RESTING THROUGHOUT THE NIGHT. VSS ON RA. NO C/O PAIN. PATIENT WEARING SLING TO LEFT ARM. PATIENT UP WITH ASSIST OF 1-2 WITH GAITBELT AND CANE. IV IN LEFT AC-SL. PATIENT INSTRUCTED TO USE CALL LIGHT WHEN NEEDING ASSISTANCE. HOURLY ROUNDS MADE. WILL CONTINUE WITH PLAN OF CARE AND NURSING TO MONITOR.
[2018-10-21 08:00] VITALS: BP 147/70
--- NOTE | 2018-10-21 15:43 | NUR ---
DURAN/[facility] GUTIERREZ SAID STILL NO RESPONSE FROM INSURANCE TODAY. CM CALLED CM FROM INSURANCE-BC BS OF JESSICA/PETER AND LEFT MESSAGE. SHE CALLED BACK AND SAID SHE DID NOT HAVE ANYTHING TO DO WITH NSG.HOME [employer] BUT GAVE CM URGENT FAX NUMBER FOR AUTH'S AND URGENT EMAIL. SHARED THESE NUMBERS/EMAIL WITH BERNABE GUTIERREZ. SHE SAID SHE WOULD GIVE THESE TO HER B.O. INFORMED PT.AND LADY FRIEND OF ABOVE. HE THANKED ME FOR STOPPING BY.
--- NOTE | 2018-10-21 17:00 | NUR ---
ALERT AND ORIENTED X4. UP WITH ASSIST X1 WITH WALKER AND GAIT BELT. IV DC'D. DENIES NEED FOR PAIN AND NAUSEA MEDICATION. DISHCARGE IS PENDING INSURANCE AUTHORIZATION. TOLERATING DIET. ATTENDED PHYSICAL THERAPY THIS THIS AM. VSS ON ROOM AIR. HOURLY ROUNDS HAVE BEEN MAINTAINED THROUGHOUT SHIFT. CALL LIGHT IS WITHIN REACH. NURSING WILL CONTINUE TO MONITOR.
[2018-10-21 19:40] VITALS: BP 173/88
[2018-10-22 04:00] VITALS: BP 140/75
[2018-10-22 04:27] LABS: INR 3.6; PROTIME 36.6 Seconds (9.20-11.50)
--- NOTE | 2018-10-22 05:47 | NUR ---
ASSUMED CARE OF PATIENT AFTER REPORT AT APPROX 1930. ALERT AND ORIENTRED X4. ASSESSMENT COMPLETED AND CHARTED. VSS ON ROOM AIR. NO COMPLAINTS OF NAUSEA OR SOA. PATIENT DID HAVE COMPLAINT OF BACK PAIN UPON INITIAL ASSESSMENT WHICH WAS RELIEVED WITH TYLENOL. COMPLAINTS OF MUSCLE SPASMS AT APPROX 0400, GIVEN FLEXERIL AND GAINED RELIEF. PATIENT STATED TO THE TECH AT BEDTIME THAT HE WOULD BE ALLOWED TO REMOVE HIS SLING ON THE LEFT UPPER EXTRMITY. NURSING SPOKE WITH PATIENT AND EDUCATED HIM OF THE IMPORTANCE OF KEEPING THE SLING IN PLACE AND MAINTAINING NON WEIGHT BEARING STATUS. PATIENT STATED THAT HIS DOCTOR TOLD HIM THAT HE COULD REMOVE THE SLING AT NIGHT TO SLEEP. THIS NURSE SAW NO ORDERS TO SUCH AND EXPLAINED THIS TO THE PATIENT, HE INSISTED ON TAKING THE SLING OFF HIMSELF. PATIENT EDUCATED ON FALL RISK AND PRECAUTIONS ARE IN PLACE. CALL LIGHT WITHIN REACH, PATIENT USES IT APPROPRIATELY. HOURLY ROUNDS COMPLETED, NURSING WILL CONTINUE TO MONITOR.
[2018-10-22 08:30] VITALS: BP 133/74
[2018-10-22 09:23] VITALS: BP 134/75
--- NOTE | 2018-10-22 11:00 | NUR ---
CALL FROM RENETTA GUTIERREZ ABOUT 0830. SHE SAID THEY HAVE RECEIVED AUTHORIZATION FROM PT.'S INSURANCE FOR HIM TO COME TO THEIR SNF TODAY. TRANSPORTATION ARRANGED WITH [facility]DR[facility]. THEY WILL PICK PT.UP AT 1100 IN [facility]. ANGI SORENSON NOTIFIED. SHE WILL CALL REPORT TO [phone]. CHART COPIED BY [employer] TO GO WITH PT. CM FAXED DISCHARGE ORDERS AND DISCHARGE SUMMARY TO DURAN/[phone].
[2018-10-22 19:35] VITALS: BP 134/75
--- NOTE | 2018-10-22 19:36 | NUR ---
PATIENT LEFT UNIT AT 1100. ALERT AND ORIENTED X4. UP WITH ASSIST X1 WITH CANE AND GAIT BELT. NO IV TO DC AT DISCHARGE. PAIN BEING MANAGED WITH PO MEDICATION. DENIES NAUSEA. SLING IN PLACE THROUGHOUT SHIFT. NWB STATUS MAINTAINED. ALL PERSONAL ITEMS LEFT WITH PATIENT. DISCHARGE INSTRUCTIONS, PRESCRIPTIONS, AND NEW MEDICATION INFORMATION SENT WITH PATIENT. VSS ON ROOM AIR. HOURLY ROUNDS HAVE BEEN MAINTAINED THROUGHOUT SHIFT. LEFT WITH TRANSPORTER VIA CAR.
== END 2018-10-22 13:00 | DRG 563 ==
LOC: M.ERS 12:18 → M.ORTHSURG 15:29 → M.TBA-ER 15:29 → M.ORTHSURG 16:51
PROVIDERS: Internal Medicine; Nurse Practitioner Family; ADMIT Internal Medicine
DX: S42.035A Nondisplaced fracture of lateral end of left clavicle, initial encounter for closed fracture (principal); N39.0 Urinary tract infection, site not specified; I10 Essential (primary) hypertension; E11.9 Type 2 diabetes mellitus without complications; I48.91 Unspecified atrial fibrillation; G20 Parkinson's disease; G25.81 Restless legs syndrome; G89.29 Other chronic pain; F41.1 Generalized anxiety disorder; F32.9 Major depressive disorder, single episode, unspecified; W18.39XA Other fall on same level, initial encounter; Y93.89 Activity, other specified; Y92.89 Other specified places as the place of occurrence of the external cause; Y99.8 Other external cause status; Z82.49 Family history of ischemic heart disease and other diseases of the circulatory system; Z87.891 Personal history of nicotine dependence

== ENCOUNTER 2018-12-29 02:27 | Inpatient (IN) | payer BC ==
[~2018-12-29] VITALS: Ht 182.9 cm; Wt 117.9 kg
[~2018-12-29 02:27] MED LIST changes: +LAXATIVE5 M1 PO; +MAALOX ADVANCE355 ML PO; +METFORMIN HCL500 MG PO; +MILK OF MA2400 MG/10 PO; +PHENERGAN 25 MG25 M1 PO
[2018-12-29 02:34] VITALS: BP 147/78
[2018-12-29 02:55] LABS: ABSOLUTE EOSINOPHILS 0.1 thou/uL (0.0-0.7); ABSOLUTE LYMPHOCYTES 2.1 thou/uL (0.8-5.3); ABSOLUTE MONOCYTES 0.5 thou/uL (0.0-1.2); ABSOLUTE NEUTROPHILS 3.3 thou/uL (1.6-8.1); BASOPHILS 0.5 %; EOSINOPHILS 1.2 %; HEMATOCRIT 37.4 % (42.0-52.0); HEMOGLOBIN 12.5 gm/dL (14.0-18.0); LYMPHOCYTES 34.7 %; MCH 30.3 pg (26.0-34.0); MCHC 33.4 g/dL (28.0-37.0); MCV 90.8 fL (80.0-100.0); MONOCYTES 7.7 %; MPV 8.1 fl. (7.2-11.1); NUCLEATED RBCS 0 /100WBC; PLATELET COUNT* 191 thou/uL (150-400); POLYS 55.9 %; RBC 4.12 mil/uL (4.50-6.00)
[2018-12-29 03:10] LABS: APTT 33.3 Seconds (25.0-31.3); INR 1.9; PROTIME 19.2 Seconds (9.20-11.50)
[2018-12-29 03:16] LABS: ALBUMIN 3.3 g/dL (3.4-5.0); ALKALINE PHOSPHATASE 72 U/L (46-116); ANION GAP 7 mmol/L (7-16); BUN 13 mg/dL (7-18); CALCIUM 8.7 mg/dL (8.5-10.1); CHLORIDE 107 mmol/L (98-107); CO2 27 mmol/L (21-32); CREATININE 0.8 mg/dL (0.6-1.3); GLUCOSE 153 mg/dL (70-99); LIPASE 119 U/L (73-393); POTASSIUM 3.9 mmol/L (3.5-5.1); SGOT 16 U/L (15-37); SGPT 8 U/L (30-65); SODIUM 141 mmol/L (136-145); TOTAL BILIRUBIN 0.5 mg/dL (<0.1-1.0); TOTAL PROTEIN 6.8 g/dL (6.4-8.2); TROPONIN-I LEVEL <0.06 ng/mL (<0.06)
--- NOTE | 2018-12-29 06:45 | NUR ---
THIS RN WALKED PT TO BR X1 ASSIST. PT UNABLE TO URINATE AT THIS TIME PT UPDATED ON POC.
[2018-12-29 08:09] VITALS: BP 130/65
--- NOTE | 2018-12-29 08:30 | NUR ---
ADMIT NOTE - PT ADMITTED TO [facility] FROM ED VIA CART. PT ABLE TO TRANSFER FROM CART TO BED WITH MINIMAL ASSIST. PT STATES HE USES A WALKER AT HOME. PT ORIENETED TO CALL LIGHT SYSTEM AND SURROUNDING. WILL CONTINUE TO MONITOR.
[2018-12-29 09:08] LABS: URINE BILIRUBIN NEGATIVE (Negative); URINE BLOOD NEGATIVE (Negative); URINE CLARITY CLEAR; URINE COLOR YELLOW; URINE GLUCOSE-RANDOM NEGATIVE (Negative); URINE KETONES NEGATIVE (Negative); URINE LEUKOCYTES-REFLEX NEGATIVE (Negative); URINE NITRITE-REFLEX NEGATIVE (Negative); URINE PROTEIN NEGATIVE (Negative)
--- NOTE | 2018-12-29 09:44 | EKG ---
[place] [address] ELECTROCARDIOGRAM REPORT Name: HANG ALFORD Room: [address] ADM IN [facility].#: [id number] Admission: 12/29/18 Attend Phys: Artem Rockwell MD Discharge: Date of : 47 Report #: [id number] THIS REPORT FOR: //name// [facility] Test Date: 2018-12-29 Test Time: 02:39:50 Pat Name: HANG ALFORD Department: Room: [facility] Gender: M Ios Software Engineer: MS : 1945 Requested By: Bassem Cole Order Number: [id number] MD: Juan Aguilar Measurements Intervals [place] Rate: 80 P: [place]: QRS: 15 QRSD: 142 T: 56 QT: 414 QTc: 478 Interpretive Statements Atrial fibrillation Nonspecific intraventricular conduction delay Compared to ECG 01/08/2018 19:50:29 No significant changes Electronically Signed On 12-29-2018 9:43:51 CDT by Juan Aguilar [email or web address] <ELECTRONICALLY SIGNED> By: Juan Aguilar MD, [facility] 12/29/18 0943 0239 0239 Juan Aguilar MD, FAC /EPI
[2018-12-29 14:51] VITALS: BP 130/65
--- NOTE | 2018-12-29 16:06 | NUR ---
DISCHARGE NOTE - PT DC'ED THIS AFTERNOON. IV REMOVED. DISCHARGE INSTRUCTIONS REVIEWED. NO QUESTIONS. CAB VOUCHER GIVEN.
== END 2018-12-29 16:05 | disposition home or self-care (01) | DRG 394 ==
LOC: M.ERS 02:27 → M.3W 06:45 → M.TBA-ER 06:45 → M.3W 08:19
PROVIDERS: Emergency Medicine; ADMIT Internal Medicine
DX: K43.9 Ventral hernia without obstruction or gangrene (principal); D68.69 Other thrombophilia; K40.20 Bilateral inguinal hernia, without obstruction or gangrene, not specified as recurrent; I48.91 Unspecified atrial fibrillation; G20 Parkinson's disease; F41.9 Anxiety disorder, unspecified; M54.5 Low back pain; E11.9 Type 2 diabetes mellitus without complications; G89.29 Other chronic pain; G25.81 Restless legs syndrome; I10 Essential (primary) hypertension; Z79.01 Long term (current) use of anticoagulants; Z79.51 Long term (current) use of inhaled steroids; Z79.899 Other long term (current) drug therapy; Z92.3 Personal history of irradiation; Z85.46 Personal history of malignant neoplasm of prostate; Z82.49 Family history of ischemic heart disease and other diseases of the circulatory system; Z80.1 Family history of malignant neoplasm of trachea, bronchus and lung; Z87.891 Personal history of nicotine dependence

== ENCOUNTER 2019-06-20 12:53 | Emergency (ER) | payer BC ==
[~2019-06-20] VITALS: Ht 188 cm; Wt 122.5 kg
[2019-06-20 15:43] VITALS: BP 162/102
== END 2019-06-20 15:45 | disposition home or self-care (01) ==
LOC: M.ERS 12:53
DX: S70.02XA Contusion of left hip, initial encounter (principal); S80.212A Abrasion, left knee, initial encounter; G89.29 Other chronic pain; I10 Essential (primary) hypertension; E11.9 Type 2 diabetes mellitus without complications; I48.91 Unspecified atrial fibrillation; G25.81 Restless legs syndrome; F41.9 Anxiety disorder, unspecified; W18.39XA Other fall on same level, initial encounter; Y93.89 Activity, other specified; Y92.89 Other specified places as the place of occurrence of the external cause; Y99.8 Other external cause status

== ENCOUNTER 2019-08-10 11:24 | Emergency (ER) | payer BC ==
[~2019-08-10] VITALS: Ht 182.9 cm; Wt 127.0 kg
[2019-08-10 14:08] LABS: URINE BILIRUBIN NEGATIVE (Negative); URINE BLOOD 1+ (Negative); URINE CLARITY CLEAR; URINE COLOR YELLOW; URINE GLUCOSE-RANDOM NEGATIVE (Negative); URINE KETONES NEGATIVE (Negative); URINE PROTEIN 2+ (Negative)
[2019-08-10 14:09] LABS: URINE LEUKOCYTES-REFLEX 2+ (Negative); URINE NITRITE-REFLEX POSITIVE (Negative)
[2019-08-10 14:18] LABS: BACTERIA-REFLEX >30 Many /HPF (None Seen); CASTS None Seen /LPF (None Seen); CRYSTALS None Seen /LPF (None Seen); MUCUS 4-6 Moderate strn/LPF (None Seen); SQUAMOUS 0-3 Few /LPF (0-3); URINE WBC-REFLEX >25 Many /HPF (0-5)
[2019-08-10] MEDS ORDERED: CIPROFLOXACIN500 M1 PO (14:38)
[2019-08-10] MEDS ORDERED: ZOVIRAX800 MG PO (15:01)
[2019-08-10 15:06] VITALS: BP 116/80
[2019-08-11] MEDS ORDERED: NEURONTIN 300M300 M2 PO (22:41)
[2019-08-11] MEDS ORDERED: NORCO 5-325 TA1 EAC1 PO (22:41)
== END 2019-08-10 15:08 | disposition home or self-care (01) ==
LOC: M.ERS 11:24
PROVIDERS: Physician Assistant
DX: N39.0 Urinary tract infection, site not specified (principal); B02.9 Zoster without complications; I10 Essential (primary) hypertension; E11.9 Type 2 diabetes mellitus without complications; I48.91 Unspecified atrial fibrillation; F41.9 Anxiety disorder, unspecified; G89.29 Other chronic pain; G25.81 Restless legs syndrome; G20 Parkinson's disease

== ENCOUNTER 2019-08-11 19:30 | Emergency (ER) | payer BC ==
[~2019-08-11] VITALS: Ht 185.4 cm; Wt 127.0 kg
[~2019-08-11 19:30] MED LIST changes: +CIPROFLOXACIN500 M1 PO; +ZOVIRAX800 MG PO
[2019-08-11 19:37] VITALS: BP 155/73
[2019-08-11] MEDS ORDERED: NEURONTIN 300M300 M2 PO (22:41)
[2019-08-11] MEDS ORDERED: NORCO 5-325 TA1 EAC1 PO (22:41)
== END 2019-08-11 22:50 | disposition home or self-care (01) ==
LOC: M.ERS 19:30
DX: B02.9 Zoster without complications (principal); I10 Essential (primary) hypertension; E11.9 Type 2 diabetes mellitus without complications; I48.91 Unspecified atrial fibrillation; F41.9 Anxiety disorder, unspecified; G89.29 Other chronic pain; G25.81 Restless legs syndrome; G20 Parkinson's disease

== ENCOUNTER 2019-08-17 17:06 | Inpatient (IN) | payer BC ==
[~2019-08-17] VITALS: Ht 185.4 cm; Wt 127.0 kg
[~2019-08-17 17:06] MED LIST changes: +NEURONTIN 300M300 M2 PO; +NORCO 5-325 TA1 EAC1 PO
[2019-08-17 17:09] VITALS: BP 174/87
[2019-08-17 17:37] LABS: URINE BILIRUBIN NEGATIVE (Negative); URINE BLOOD NEGATIVE (Negative); URINE CLARITY CLEAR; URINE COLOR YELLOW; URINE GLUCOSE-RANDOM NEGATIVE (Negative); URINE KETONES NEGATIVE (Negative); URINE LEUKOCYTES-REFLEX NEGATIVE (Negative); URINE NITRITE-REFLEX NEGATIVE (Negative); URINE PROTEIN NEGATIVE (Negative); URINE SPECIFIC GRAVITY 1.025 (1.005-1.030); URINE UROBILINOGEN 0.2 E.U./dl (0.2-1.0)
[2019-08-17 18:13] LABS: ABSOLUTE LYMPHOCYTES 1.6 thou/uL (0.8-5.3); ABSOLUTE MONOCYTES 0.5 thou/uL (0.0-1.2); ABSOLUTE NEUTROPHILS 3.2 thou/uL (1.6-8.1); BASOPHILS 0.4 %; EOSINOPHILS 0.5 %; HEMATOCRIT 36.4 % (42.0-52.0); HEMOGLOBIN 12.5 gm/dL (14.0-18.0); LYMPHOCYTES 30.2 %; MCH 30.7 pg (26.0-34.0); MCHC 34.4 g/dL (28.0-37.0); MCV 89.3 fL (80.0-100.0); MONOCYTES 9.6 %; MPV 7.9 fl. (7.2-11.1); NUCLEATED RBCS 0 /100WBC; PLATELET COUNT* 171 thou/uL (150-400); POLYS 59.3 %; RBC 4.08 mil/uL (4.50-6.00); RDW-CV 14.8 % (10.5-14.5); WBC 5.4 thou/uL (4.0-11.0)
[2019-08-17 18:20] LABS: CREATININE 0.9 mg/dL (0.6-1.3); POTASSIUM 3.5 mmol/L (3.5-5.1)
[2019-08-17 18:24] LABS: ALBUMIN 3.6 g/dL (3.4-5.0); TOTAL BILIRUBIN 0.8 mg/dL (<0.1-1.0); TOTAL PROTEIN 7.5 g/dL (6.4-8.2)
[2019-08-17 20:33] VITALS: BP 142/75
[2019-08-17 21:00] VITALS: BP 173/83
[2019-08-18 08:10] VITALS: BP 170/93
--- NOTE | 2019-08-18 11:15 | EKG ---
[place] [address] ELECTROCARDIOGRAM REPORT Name: HANG ALFORD Room: [address] ADM [place] .R.#: [id number] Admission: 08/17/19 Attend Phys: Alonso Staton Discharge: Date of : 47 Report #: [id number] THIS REPORT FOR: //name// [facility] ED Test Date: 2019-08-17 Test Time: 17:42:08 Pat Name: HANG ALFORD Department: Room: [facility] Gender: M Corking Machine Operator: : 1945 Requested By: Anjali Sears Order Number: [id number] MD: Sukhjinder Liu Measurements Intervals [place] Rate: 79 P: [place]: QRS: -19 QRSD: 126 T: 43 QT: 412 QTc: 473 Interpretive Statements Atrial fibrillation Incomplete right bundle-branch block Baseline wander in lead(s) V6 Compared to ECG 12/29/2018 02:39:50 No significant changes Electronically Signed On 08-18-2019 11:15:27 CDT by Sukhjinder Liu [email or web address] <ELECTRONICALLY SIGNED> By: Sukhjinder Liu MD, [facility] 08/18/19 1115 1742 1742 Sukhjinder Liu MD, FACC /EPI
[2019-08-18 17:13] VITALS: BP 201/103
[2019-08-18 18:15] VITALS: BP 172/82
[2019-08-18 18:32] LABS: CALCIUM 8.7 mg/dL (8.5-10.1); CREATININE 0.7 mg/dL (0.6-1.3); MAGNESIUM 1.9 mg/dL (1.8-2.4); POTASSIUM 3.5 mmol/L (3.5-5.1)
[2019-08-18 18:33] LABS: INR 2.7; PROTIME 26.8 Seconds (9.20-11.50)
[2019-08-19 04:38] LABS: HEMATOCRIT 34.1 % (42.0-52.0); HEMOGLOBIN 11.6 gm/dL (14.0-18.0); MCH 30.2 pg (26.0-34.0); MCHC 33.9 g/dL (28.0-37.0); MPV 8.2 fl. (7.2-11.1); RBC 3.84 mil/uL (4.50-6.00); RDW-CV 15.2 % (10.5-14.5); WBC 4.7 thou/uL (4.0-11.0)
[2019-08-19 04:43] LABS: INR 2.8; PROTIME 27.4 Seconds (9.20-11.50)
[2019-08-19 04:53] LABS: CALCIUM 8.4 mg/dL (8.5-10.1); CREATININE 0.6 mg/dL (0.6-1.3); POTASSIUM 3.2 mmol/L (3.5-5.1)
[2019-08-19 07:50] VITALS: BP 130/56
[2019-08-19 17:14] VITALS: BP 144/71
[2019-08-20] VITALS: BP 137/70
[2019-08-20 05:17] LABS: INR 2.7; PROTIME 26.4 Seconds (9.20-11.50)
[2019-08-20 06:13] LABS: POTASSIUM 3.8 mmol/L (3.5-5.1)
[2019-08-20 06:48] LABS: CALCIUM 8.6 mg/dL (8.5-10.1); CREATININE 0.7 mg/dL (0.6-1.3); MAGNESIUM 2.2 mg/dL (1.8-2.4)
[2019-08-20 08:25] VITALS: BP 139/66
[2019-08-20 16:00] VITALS: BP 137/74
[2019-08-20 20:00] VITALS: BP 150/69
[2019-08-21 04:29] LABS: HEMATOCRIT 35.2 % (42.0-52.0); HEMOGLOBIN 11.9 gm/dL (14.0-18.0); MCH 30.2 pg (26.0-34.0); MCHC 33.8 g/dL (28.0-37.0); MCV 89.4 fL (80.0-100.0); RBC 3.94 mil/uL (4.50-6.00); RDW-CV 15.3 % (10.5-14.5); WBC 5.4 thou/uL (4.0-11.0)
[2019-08-21 04:41] LABS: CALCIUM 8.4 mg/dL (8.5-10.1); CREATININE 0.7 mg/dL (0.6-1.3); POTASSIUM 3.8 mmol/L (3.5-5.1)
[2019-08-21 07:30] VITALS: BP 145/78
[2019-08-21 15:49] VITALS: BP 154/60
[2019-08-21 18:48] LABS: INR 2.7; PROTIME 26.7 Seconds (9.20-11.50)
[2019-08-22 04:41] VITALS: BP 161/67
[2019-08-22 07:50] VITALS: BP 146/84
[2019-08-22 15:28] VITALS: BP 146/84
== END 2019-08-22 16:47 | DRG 552 ==
LOC: M.ERS 17:06 → M.TBA-ER 18:51 → M.3W 18:51
PROVIDERS: Family Medicine; Personal Emergency Response Attendant; ADMIT Internal Medicine
DX: M46.1 Sacroiliitis, not elsewhere classified (principal); D68.59 Other primary thrombophilia; I48.20 Chronic atrial fibrillation, unspecified; I10 Essential (primary) hypertension; E11.9 Type 2 diabetes mellitus without complications; I48.91 Unspecified atrial fibrillation; G20 Parkinson's disease; G25.81 Restless legs syndrome; F41.9 Anxiety disorder, unspecified; G89.4 Chronic pain syndrome; F32.9 Major depressive disorder, single episode, unspecified; B02.9 Zoster without complications; K74.60 Unspecified cirrhosis of liver; Z23 Encounter for immunization; Z82.49 Family history of ischemic heart disease and other diseases of the circulatory system; Z80.1 Family history of malignant neoplasm of trachea, bronchus and lung; Z79.01 Long term (current) use of anticoagulants; Z79.899 Other long term (current) drug therapy

== ENCOUNTER 2019-11-07 21:11 | Inpatient (IN) | payer BC ==
[~2019-11-07] VITALS: Ht 185.4 cm; Wt 129.3 kg
[2019-11-07 21:14] VITALS: BP 192/92
[2019-11-07] MEDS ORDERED: LIPITOR40 MG PO (21:59)
[2019-11-07 22:00] LABS: ABSOLUTE LYMPHOCYTES 2.3 thou/uL (0.8-5.3); ABSOLUTE MONOCYTES 0.4 thou/uL (0.0-1.2); ABSOLUTE NEUTROPHILS 3.2 thou/uL (1.6-8.1); BASOPHILS 0.4 %; EOSINOPHILS 0.6 %; HEMATOCRIT 39.5 % (42.0-52.0); HEMOGLOBIN 13.9 gm/dL (14.0-18.0); LYMPHOCYTES 37.9 %; MCH 31.2 pg (26.0-34.0); MCHC 35.2 g/dL (28.0-37.0); MCV 88.8 fL (80.0-100.0); MONOCYTES 6.6 %; MPV 8.5 fl. (7.2-11.1); NUCLEATED RBCS 0 /100WBC; PLATELET COUNT* 175 thou/uL (150-400); POLYS 54.5 %; RBC 4.45 mil/uL (4.50-6.00); RDW-CV 15.3 % (10.5-14.5)
[2019-11-07] MEDS ORDERED: FINASTERIDE5 MG PO (22:00)
[2019-11-07] MEDS ORDERED: FLEXERIL PO (22:00)
[2019-11-07] MEDS ORDERED: FUROSEMIDE 20 M20 MG PO (22:01)
[2019-11-07] MEDS ORDERED: GLYCOPYRROLATE 11 MG PO (22:02)
[2019-11-07] MEDS ORDERED: LIDOCAINE PAIN1 EACH TOP (22:04)
[2019-11-07] MEDS ORDERED: LORAZEPAM 1 MG T1 MG PO (22:04)
[2019-11-07] MEDS ORDERED: METFORMIN HCL500 M3 PO (22:05)
[2019-11-07] MEDS ORDERED: KLOR-CON M2020 MEQ PO (22:05)
[2019-11-07] MEDS ORDERED: MIRAPEX0.5 MG PO (22:06)
[2019-11-07 22:07] LABS: CALCIUM 8.3 mg/dL (8.5-10.1); CREATININE 0.9 mg/dL (0.6-1.3); POTASSIUM 3.7 mmol/L (3.5-5.1)
[2019-11-07 22:11] LABS: ALBUMIN 3.6 g/dL (3.4-5.0); MAGNESIUM 1.6 mg/dL (1.8-2.4); TOTAL BILIRUBIN 1.1 mg/dL (<0.1-1.0); TOTAL PROTEIN 7.8 g/dL (6.4-8.2)
[2019-11-07 22:22] LABS: INR 2.8; PROTIME 27.3 Seconds (9.20-11.50)
[2019-11-08 00:38] LABS: URINE BILIRUBIN NEGATIVE (Negative); URINE BLOOD NEGATIVE (Negative); URINE CLARITY CLEAR; URINE COLOR YELLOW; URINE GLUCOSE-RANDOM NEGATIVE (Negative); URINE KETONES NEGATIVE (Negative); URINE LEUKOCYTES-REFLEX NEGATIVE (Negative); URINE NITRITE-REFLEX NEGATIVE (Negative); URINE PROTEIN NEGATIVE (Negative); URINE UROBILINOGEN 0.2 E.U./dl (0.2-1.0)
[2019-11-08 01:39] VITALS: BP 160/91
[2019-11-08 02:15] VITALS: BP 171/92
[2019-11-08 08:00] VITALS: BP 147/76
[2019-11-08 09:47] LABS: INR 2.5; PROTIME 24.8 Seconds (9.20-11.50)
--- NOTE | 2019-11-08 11:09 | EKG ---
[place] [address] ELECTROCARDIOGRAM REPORT Name: HANG ALFORD Room: [address] ADM [place] .R.#: [id number] Admission: 11/08/19 Attend Phys: Brent Felipe Discharge: Date of : 47 Report #: [id number] THIS REPORT FOR: //name// [facility] ED Test Date: 2019-11-07 Test Time: 21:18:44 Pat Name: HANG ALFORD Department: Room: [address] Gender: M Ballistician: : 1945 Requested By: Olga Lidia Montalvo Order Number: [id number] Julio MD: Juan Aguilar Measurements Intervals [place] Rate: 90 P: [place]: QRS: -2 QRSD: 138 T: 52 QT: 392 QTc: 480 Interpretive Statements Atrial fibrillation Nonspecific intraventricular conduction delay early transition baseline artifact Compared to ECG 08/17/2019 17:42:08 no change Electronically Signed On 11-08-2019 11:09:00 GRAIN BLENDER by Juan Aguilar [email or web address] <ELECTRONICALLY SIGNED> By: Juan Aguilar MD, [facility] 11/08/19 1109 17 17 Juan Aguilar MD, FAC /EPI
[2019-11-08 12:02] VITALS: BP 138/88
--- NOTE | 2019-11-08 12:48 | NUR ---
Pt is A&O. Resides at home alone. Independent with ADLs and IADLs. Pt has a walker and cane that he uses for mobility and has grab bars in his shower. Hx of HH, does not recall with which agency. Hx of skilled at [facility], Pt wants skilled at [facility] to fax referral to [facility]. Supportive son that is available as needed. CM updated Dr on POC. Following.
--- NOTE | 2019-11-08 14:50 | NUR ---
I have reviewed the documentation by TAO GRANDA from 11/08/19 to 11/08/19 and I concur with it. THAD BARBOZA
[2019-11-08 16:25] VITALS: BP 155/80
--- NOTE | 2019-11-08 16:54 | 2DMMODE ---
[place] [address] 2 D/M-MODE ECHOCARDIOGRAM Name: HANG ALFORD Room: [address] ADM IN [facility]#: [id number] Admission: 11/08/19 Attend Phys: Yuinor Beltran Discharge: Date of : 47 Date of Service: 11/08/19 1653 Report #: [id number] THIS REPORT FOR: //name// ADDENDUM APPROVED REPORT Study performed: 11/08/2019 15:03:28 EXAM: Comprehensive 2D, Doppler, and color-flow Echocardiogram Patient Location: In-Patient Room #: 208 Status: routine BSA: 2.50 HR: 74 bpm BP: 147/76 mmHg Rhythm: Atrial Fibrillation Other Information Study Quality: Adequate Indications Congestive Heart Failure Atrial Fibrillation 2D Dimensions IVSd: 11.76 (7-11mm) LVOT Diam: 23.76 (18-24mm) LVDd: 70.10 mm PWd: 12.49 (7-11mm) Ascending Ao: 40.44 (22-36mm) LVDs: 42.43 (25-40mm) Aortic Root: 42.79 mm Volumes Left Atrial Volume (Systole) LA ESV Index: 64.40 mL/m2 Aortic Valve AoV Peak Alejandro.: 1.22 m/s AO Peak Gr.: 5.94 mmHg LVOT Max P.12 mmHg AO Mean Gr.: 3.77 mmHg LVOT Mean P.99 mmHg LVOT Max V: 0.73 m/s AO V2 VTI: 20.72 cm LVOT Mean V: 0.45 m/s EMELIA (VTI): 2.90 cm2 LVOT V1 VTI: 13.54 cm Mitral Valve MV Decel. Time: 216.14 ms MV PHT: 62[place]68 [place] [address] 2 D/M-MODE ECHOCARDIOGRAM Name: HANG ALFORD Room: [address] IN ..#: [id number] Admission: 11/08/19 Attend Phys: Yunior Beltran Discharge: Date of : 47 Date of Service: 11/08/19 1653 Report #: [id number] MVA (PHT): 3.51 cm2 TDI Lateral E' Alejandro.: 0.14 m/s Pulmonary Valve PV Peak Alejandro.: 0.80 m/s PV Peak Gr.: 2.56 mmHg Tricuspid Valve RAP Estimate: 5.00 mmHg TR Peak Gr.: 28.01 mmHg RVSP: 33.00 mmHg PA Pressure: 33.00 mmHg Left Ventricle The left ventricle is normal size. There is normal LV segmental wall motion. There is normal left ventricular wall thickness. Left ventricular systolic function is normal. LVEF is 50-55%. This study is not technically sufficient to allow evaluation of the LV diastolic function due to atrial fibrillation. Right Ventricle The right ventricle is normal size. The right ventricular systolic function is normal. Atria Left atrium is severely dilated. Right atrium is moderately dilated. Aortic Valve The aortic valve is normal in structure. No aortic regurgitation is present. There is no aortic valvular stenosis. Mitral Valve The mitral valve is normal in structure. Trace mitral regurgitation. No evidence of mitral valve stenosis. Tricuspid Valve The tricuspid valve is normal in structure. Mild tricuspid regurgitation. Mild pulmonary hypertension. Pulmonic Valve The pulmonary valve is normal in structure. There is no pulmonic valvular regurgitation. Great Vessels The aortic root is normal in size. Asc[place] [address] 2 D/M-MODE ECHOCARDIOGRAM Name: HANG ALFORD Room: [address] IN [facility]#: [id number] Admission: 11/08/19 Attend Phys: Yunior Beltran Discharge: Date of : 47 Date of Service: 11/08/19 1653 Report #: [id number] dilated measuring 4.04 cm in diameter. IVC is normal in size and collapses >50% with inspiration. Pericardium There is no pericardial effusion. <Conclusion> The left ventricle is normal size. There is normal left ventricular wall thickness. Left ventricular systolic function is normal. LVEF is 50-55%. This study is not technically sufficient to allow evaluation of the LV diastolic function due to atrial fibrillation. Left atrium is severely dilated. Right atrium is moderately dilated. Trace mitral regurgitation. Mild tricuspid regurgitation. Mild pulmonary hypertension. IVC is normal in size and collapses >50% with inspiration. Ascending aortic arch mildly dilated measuring 4.04 cm in diameter. <ELECTRONICALLY SIGNED> By: Sukhjnider Liu MD, [facility] 11/08/191652 52 52 Sukhjinder Liu MD, FACC /INF
--- NOTE | 2019-11-08 18:29 | NUR ---
PATIENT RESTING IN CHAIR IN ROOM. FEET ELEVATED TO PROMOTE VENOUS RETURN. 2+ PEDAL EDEMA. VSS AND PATIENT IN NO APPARNET SIGND OF DISTRESS AT THIS TIME. FREQUENT URINASTION R/T DIURESIS. GREGG NUNO COMPLETED FOR PATIENT SAFETY.
[2019-11-08 20:10] VITALS: BP 140/75
[2019-11-09] VITALS: BP 115/62
[2019-11-09 04:00] VITALS: BP 129/53
--- NOTE | 2019-11-09 05:13 | NUR ---
PATIENT PROGRESSING TOWARDS GOALS: PATIENT DENIES SHORTNESS OF AIR. O2 SATURATION MAINTAINED >92% ON ROOM AIR. BLE ELEVATED IN BED TO IMPROVE EDEMA. CALL LIGHT WITHIN REACH
[2019-11-09 05:36] LABS: HEMATOCRIT 37.8 % (42.0-52.0); HEMOGLOBIN 13.2 gm/dL (14.0-18.0); MCH 30.9 pg (26.0-34.0); MCHC 34.9 g/dL (28.0-37.0); MCV 88.6 fL (80.0-100.0); MPV 8.3 fl. (7.2-11.1); RBC 4.27 mil/uL (4.50-6.00); RDW-CV 15.3 % (10.5-14.5); WBC 5.6 thou/uL (4.0-11.0)
[2019-11-09 05:47] LABS: INR 2.4; PROTIME 23.5 Seconds (9.20-11.50)
[2019-11-09 06:06] LABS: ALBUMIN 3.3 g/dL (3.4-5.0); CALCIUM 8.3 mg/dL (8.5-10.1); CREATININE 0.7 mg/dL (0.6-1.3); MAGNESIUM 1.8 mg/dL (1.8-2.4); POTASSIUM 3.2 mmol/L (3.5-5.1); TOTAL PROTEIN 6.6 g/dL (6.4-8.2)
[2019-11-09 08:00] VITALS: BP 140/73
--- NOTE | 2019-11-09 10:08 | NUR ---
WOUND NURSE: PATIENT SEEN TO PROVIDE MILD COMPRESSION TO BLE 2ND TO PERIPHERAL EDEMA OF 3+ PITTING. UNABLE TO PALPATE PEDAL PULSES, BUT DID DOPPLER PULSES WHICH WERE BIPHASIC BOTH FEET. CAPILLARY REFILL WAS <3 SEC. THERE IS DEPENDENT RUBOR AND HYPERPIGMENTATION PRESENT. CALF MEASUREMENTS WERE 45CM EACH SO APPLIED SIZE F TUBIGRIPS TOES TO KNEE BLE. THIS WAS TOLERATED WELL BY THE PATIENT WHO REPORTS HE HAS WORN COMPRESSION IN HIS PAST. INSTRUCTED TO WEAR TUBIGRIPS DAILY WHEN UP IN CHAIR AND OUT OF BED. MAY TAKE OFF AT BEDTIME. PATIENT STATES HE UNDERSTANDS.
[2019-11-09 13:03] VITALS: BP 136/74
--- NOTE | 2019-11-09 14:03 | NUR ---
RE: Heart failure medication education I provided patient with a heart failure medication education handout. We discussed furosemide and all questions were answered. Pharmacy is available for any future questions. Thank you.
[2019-11-09 16:00] VITALS: BP 142/82
--- NOTE | 2019-11-09 17:09 | NUR ---
I have reviewed the documentation by TAO GRANDA from 11/09/19 to 11/09/19 and I concur with it. THAD BARBOZA
--- NOTE | 2019-11-09 18:42 | NUR ---
PATIENT RESTING IN BED. UP WITH STANDBY ASSISTANCE AND WALKER USE. VSS. MATA HAS NO COMPLAINTS AT [facility] TIME. HOURLY ROUNDING COMPLETED FOR PATIENT SAFETY.
[2019-11-09 20:35] VITALS: BP 140/77
[2019-11-10] VITALS (7 sets, daily range): BP systolic 122–149; BP diastolic 74–87
[2019-11-10 05:16] LABS: INR 2.1; PROTIME 20.7 Seconds (9.20-11.50)
--- NOTE | 2019-11-10 07:36 | NUR ---
Faxed therapy evals/notes to [facility] at [facility], they can accept pending bed availability. Anticipate dc either today or tomorrow.
--- NOTE | 2019-11-10 19:33 | NUR ---
RECEIVED REPORT FROM NIGHT NURSE CORRINE. ASSUMED PT CARE AROUND 0730. PT A&O X4. VSS. CHROME WORKER IN PLACE TRACING AFIB WITH OCCASIONAL PVC'S. AM ASSESSMENT AND VITALS COMPLETED CHARTED. IV INTACT. MEDS PER EMAR. PT UP WITH ASSIST TO BATHROOM SEVERAL TIMES TODAY. I&O'S CHARTED. GOOD APPETITE. PT UP IN BEDSIDE RECLINER WITH FEET UP MOST OF THE SHIFT. PT HOPING TO GO HOME IN THE MORNING. HAS DENIED PAIN THIS SHIFT. PT CURRENTLY SITTING UP IN BEDSIDE CHAIR. FALL PRECAUTIONS IN PLACE. CALL LIGHT IS WITHIN REACH. HOURLY ROUNDING PERFORMED.
[2019-11-10] MEDS ORDERED: LIPITOR 40 MG T40 M1 PO (19:41)
--- NOTE | 2019-11-10 22:27 | NUR ---
INITAL ASSESMENT COMPLETED AT 2029. PT IN RECLINER AT THAT TIME WITH FEET ELEVATED. HS MEDS GIVEN PER EMAR. PT'S BLOOD SUGAR 139. PT REFUSED SKIDING SCALE INSULIN. CALL LIGHT IN REACH, PT DEMONSTRATES PROPER USE.
[2019-11-11 04:12] VITALS: BP 136/77
[2019-11-11 05:05] LABS: HEMOGLOBIN 13.6 gm/dL (14.0-18.0); MCHC 34.8 g/dL (28.0-37.0); MPV 8.2 fl. (7.2-11.1); RBC 4.38 mil/uL (4.50-6.00); RDW-CV 15.3 % (10.5-14.5); WBC 6.9 thou/uL (4.0-11.0)
[2019-11-11 05:20] LABS: INR 2.5; PROTIME 25.1 Seconds (9.20-11.50)
[2019-11-11 05:22] LABS: CALCIUM 8.5 mg/dL (8.5-10.1); MAGNESIUM 1.8 mg/dL (1.8-2.4)
[2019-11-11 05:53] LABS: POTASSIUM 3.6 mmol/L (3.5-5.1)
[2019-11-11 08:00] VITALS: BP 134/72
--- NOTE | 2019-11-11 10:48 | NUR ---
Insurance auth received for Pt to dc to [facility] for skilled, waiting dc orders.
[2019-11-11 12:00] VITALS: BP 137/88
[2019-11-11] MEDS ORDERED: HUMALOG100 UNIT/1 SUBQ (14:40)
--- NOTE | 2019-11-11 15:17 | NUR ---
PT DISCHARGED TO [facility] IN STABLE CONDITION. PT TAKEN BY WC TO FACILITY VEHICLE BY FACILITY STAFF WITH ALL OF BELONGINGS
== END 2019-11-11 15:16 | DRG 292 ==
LOC: M.ERS 21:11 → M.2W 11-08 00:22 → M.TBA-ER 11-08 00:22 → M.2W 11-08 01:53
PROVIDERS: Emergency Medicine; Internal Medicine; ADMIT Internal Medicine
DX: I11.0 Hypertensive heart disease with heart failure (principal); D68.59 Other primary thrombophilia; E11.9 Type 2 diabetes mellitus without complications; I48.91 Unspecified atrial fibrillation; I50.43 Acute on chronic combined systolic (congestive) and diastolic (congestive) heart failure; G20 Parkinson's disease; G25.81 Restless legs syndrome; F41.9 Anxiety disorder, unspecified; G89.29 Other chronic pain; Z82.49 Family history of ischemic heart disease and other diseases of the circulatory system; Z80.1 Family history of malignant neoplasm of trachea, bronchus and lung; Z80.8 Family history of malignant neoplasm of other organs or systems; Z79.899 Other long term (current) drug therapy; Z79.01 Long term (current) use of anticoagulants; Z91.14 Patient's other noncompliance with medication regimen; Z85.46 Personal history of malignant neoplasm of prostate

== ENCOUNTER 2019-12-29 16:19 | Emergency (ER) | payer BC ==
[~2019-12-29] VITALS: Ht 185.4 cm; Wt 117.9 kg
[~2019-12-29 16:19] MED LIST changes: +FINASTERIDE5 MG PO; +FUROSEMIDE 20 M20 MG PO; +GLYCOPYRROLATE 11 MG PO; +HUMALOG100 UNIT/1 SUBQ; +KLOR-CON M2020 MEQ PO; +LIDOCAINE PAIN1 EACH TOP; +LIPITOR 40 MG T40 M1 PO; +LIPITOR40 MG PO; +LORAZEPAM 1 MG T1 MG PO; +METFORMIN HCL500 M3 PO; +MIRAPEX0.5 MG PO
[2019-12-29 17:37] LABS: CALCIUM 8.3 mg/dL (8.5-10.1); CREATININE 0.7 mg/dL (0.6-1.3); POTASSIUM 3.7 mmol/L (3.5-5.1)
[2019-12-29 17:48] LABS: ALBUMIN 3.6 g/dL (3.4-5.0); TOTAL PROTEIN 6.8 g/dL (6.4-8.2)
[2019-12-29 18:00] VITALS: BP 146/68
--- NOTE | 2019-12-30 16:44 | EKG ---
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: MS : 1945 Requested By: Fuad Jacob Order Number: [id number] MD: Aravind Malik Measurements Intervals [place] Rate: 74 P: [place]: QRS: 9 QRSD: 141 T: 21 QT: 451 QTc: 501 Interpretive Statements Atrial fibrillation Nonspecific intraventricular conduction delay Baseline wander in lead(s) V4,V5 Compared to ECG 11/07/2019 21:18:44 No significant changes Electronically Signed On 12-30-2019 16:43:37 CDT by Aravind Malik [email or web address] <ELECTRONICALLY SIGNED> By: Aravind Malik MD, FACC 12/30/19 1643 164 40 Aravind Malik MD, [facility] /EPI
== END 2019-12-29 18:01 | disposition home or self-care (01) ==
LOC: M.ERS 16:19
PROVIDERS: Family Medicine
DX: R42 Dizziness and giddiness (principal); I10 Essential (primary) hypertension; E11.9 Type 2 diabetes mellitus without complications; I48.91 Unspecified atrial fibrillation; F41.9 Anxiety disorder, unspecified; G89.29 Other chronic pain; G20 Parkinson's disease; Z79.4 Long term (current) use of insulin; Z79.899 Other long term (current) drug therapy

== ENCOUNTER 2020-10-03 14:52 | Inpatient (IN) | payer BC ==
[~2020-10-03] VITALS: Ht 185.4 cm; Wt 124.2 kg
[2020-10-03 14:55] VITALS: BP 152/73
[2020-10-03 15:23] LABS: ABSOLUTE LYMPHOCYTES 1.4 thou/uL (0.8-5.3); ABSOLUTE MONOCYTES 0.3 thou/uL (0.0-1.2); ABSOLUTE NEUTROPHILS 4.4 thou/uL (1.6-8.1); BASOPHILS 0.2 %; EOSINOPHILS 0.2 %; HEMATOCRIT 35.1 % (42.0-52.0); HEMOGLOBIN 12.3 gm/dL (14.0-18.0); LYMPHOCYTES 22.6 %; MCH 31.6 pg (26.0-34.0); MCHC 35.1 g/dL (28.0-37.0); MONOCYTES 5.4 %; NUCLEATED RBCS 0 /100WBC; PLATELET COUNT* 228 thou/uL (150-400); POLYS 71.6 %; RDW-CV 14.7 % (10.5-14.5); WBC 6.1 thou/uL (4.0-11.0)
[2020-10-03 15:36] LABS: APTT 27.3 Seconds (25.0-31.3); CALCIUM 8.3 mg/dL (8.5-10.1); CREATININE 0.8 mg/dL (0.6-1.3); INR 1.2; PROTIME 12.4 Seconds (9.20-11.50)
[2020-10-03 15:49] LABS: ALBUMIN 3.5 g/dL (3.4-5.0); CK-MB MASS 0.9 ng/mL (<0.5-3.6); MAGNESIUM 1.7 mg/dL (1.8-2.4); TOTAL BILIRUBIN 1.1 mg/dL (<0.1-1.0); TOTAL PROTEIN 7.3 g/dL (6.4-8.2)
[2020-10-03 15:55] LABS: POTASSIUM 2.9 mmol/L (3.5-5.1)
[2020-10-03 17:49] LABS: CALCIUM 9.2 mg/dL (8.5-10.1); CREATININE 0.8 mg/dL (0.6-1.3)
--- NOTE | 2020-10-03 18:27 | EKG ---
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 Collector: : 1945 Requested By: Rick Staley Order Number: [id number] MD: Claudio Bradley Measurements Intervals [place] Rate: 81 P: [place]: QRS: 25 QRSD: 133 T: 107 QT: 444 QTc: 516 Interpretive Statements Atrial fibrillation Nonspecific intraventricular conduction delay Nonspecific repol abnormality, diffuse leads Baseline wander in lead(s) I,III,aVR,aVL,aVF Compared to ECG 12/29/2019 16:41:10 Early repolarization now present Electronically Signed On 10-03-2020 18:27:29 HOUSING DEVELOPMENT SPECIALIST by Claudio Bradley [email or web address] <ELECTRONICALLY SIGNED> By: Sharonda Bradley MD, [facility] 10/03/20 182 56 56 Sharonda Bradley MD, [facility] /EPI
[2020-10-03 19:53] VITALS: BP 139/73
[2020-10-04] VITALS (10 sets, daily range): BP systolic 119–165; BP diastolic 55–89
[2020-10-04 05:08] LABS: ABSOLUTE EOSINOPHILS 0.1 thou/uL (0.0-0.7); ABSOLUTE LYMPHOCYTES 1.8 thou/uL (0.8-5.3); ABSOLUTE MONOCYTES 0.5 thou/uL (0.0-1.2); ABSOLUTE NEUTROPHILS 3.6 thou/uL (1.6-8.1); BASOPHILS 0.5 %; EOSINOPHILS 1.8 %; HEMATOCRIT 33.4 % (42.0-52.0); HEMOGLOBIN 11.4 gm/dL (14.0-18.0); MCH 31.2 pg (26.0-34.0); MCV 91.6 fL (80.0-100.0); MONOCYTES 8.2 %; MPV 7.5 fl. (7.2-11.1); NUCLEATED RBCS 0 /100WBC; PLATELET COUNT* 212 thou/uL (150-400); POLYS 59.5 %; RBC 3.65 mil/uL (4.50-6.00); RDW-CV 14.9 % (10.5-14.5); WBC 6.1 thou/uL (4.0-11.0)
[2020-10-04 05:55] LABS: INR 1.1; PROTIME 11.4 Seconds (9.20-11.50)
[2020-10-04 06:08] LABS: CALCIUM 8.2 mg/dL (8.5-10.1); CREATININE 0.7 mg/dL (0.6-1.3)
[2020-10-04 06:13] LABS: POTASSIUM 2.7 mmol/L (3.5-5.1)
[2020-10-04 09:11] LABS: CHOLESTEROL 105 mg/dL (<200); HDL CHOLESTEROL 41 mg/dL (>40); LDL CHOLESTEROL 48 mg/dL (<100); TC:HDL 2.6 Ratio (Not establshd); TRIGLYCERIDE 83 mg/dL (<150); VLDL 17 mg/dL (<40)
[2020-10-04 09:13] LABS: SERUM ASSESSMENT Clear
--- NOTE | 2020-10-04 17:03 | 2DMMODE ---
[place] [address] 2 D/M-MODE ECHOCARDIOGRAM Name: HANG ALFORD Room: [address] ADM IN .R.#: [id number] Admission: 10/03/20 Attend Phys: Dawit Christianson, Discharge: Date of : 47 Date of Service: 10/04/20 1703 Report #: [id number] THIS REPORT FOR: cc: Cherry Toledo MD, Lin W. MD Holkins,Aravind Zhao MD LOCATED WITHIN [facility] ~ APPROVED REPORT Study performed: 10/04/2020 09:38:33 EXAM: Comprehensive 2D, Doppler, and color-flow Echocardiogram Patient Location: In-Patient Room #: [facility] Status: routine BSA: 2.46 HR: 67 bpm BP: 145/77 mmHg Rhythm: Atrial Fibrillation Other Information Technically limited study due to poor endocardial definition. Indications Dyspnea 2D Dimensions IVSd: 10.63 (7-11mm) LVOT Diam: 23.65 (18-24mm) LVDd: 60.35 mm PWd: 12.03 (7-11mm) Ascending Ao: 39.87 (22-36mm) LVDs: 36.56 (25-40mm) Aortic Root: 41.70 mm Volumes Left Atrial Volume (Systole) LA ESV Index: 79.30 mL/m2 Aortic Valve AoV Peak Alejandro.: 1.38 m/s AO Peak Gr.: 7.63 mmHg LVOT Max P.94 mmHg AO Mean Gr.: 4.37 mmHg LVOT Mean P.95 mmHg LVOT Max V: 0.70 m/s AO V2 VTI: 26.44 cm LVOT Mean V: 0.45 m/s EMELIA (VTI): 2.29 cm2 LVOT V1 VTI: 13.77 [place] [address] 2 D/M-MODE ECHOCARDIOGRAM Name: HANG ALFORD Room: [address] IN [facility]#: [id number] Admission: 10/03/20 Attend Phys: Dawti Christianson, Discharge: Date of : 47 Date of Service: 10/04/20 1703 Report #: [id number] Mitral Valve MV Decel. Time: 276.24 ms MV PHT: 80.11 ms MVA (PHT): 2.75 cm2 TDI Medial E' Alejandro.: 0.12 m/s Lateral E' Alejandro.: 0.12 m/s Pulmonary Valve PV Peak Alejandro.: 0.97 m/s PV Peak Gr.: 3.80 mmHg Tricuspid Valve RAP Estimate: 10.00 mmHg TR Peak Gr.: 35.28 mmHg RVSP: 45.00 mmHg PA Pressure: 45.00 mmHg Left Ventricle The left ventricle is normal size. There is normal LV segmental wall motion. There is normal left ventricular wall thickness. Left ventricular systolic function is normal. The left ventricular ejection fraction is within the normal range. LVEF is 55-60%. This study is not technically sufficient to allow evaluation of the LV diastolic function due to atrial fibrillation. Right Ventricle Right ventricle is mild to moderately dilated. The right ventricular systolic function is normal. Atria Left atrium is moderately dilated. Right atrium is moderately dilated. Aortic Valve Mild aortic valve sclerosis. Mild aortic regurgitation. There is no aortic valvular stenosis. Mitral Valve There is mitral annular calcification. There is no mitral valve regurgitation noted. No evidence of mitral valve stenosis. Tricuspid Valve The tricuspid valve is normal in structure. Mild to moderate tricuspid regurgitation. Moderate [place] [address] 2 D/M-MODE ECHOCARDIOGRAM Name: HANG ALFORD Room: [address]#: [id number] Admission: 10/03/20 Attend Phys: Dawit Christianson, Discharge: Date of : 47 Date of Service: 10/04/20 1703 Report #: [id number] Pulmonic Valve The pulmonary valve is normal in structure. There is no pulmonic valvular regurgitation. Great Vessels The aortic root is normal in size. IVC is dilated. Pericardium There is no pericardial effusion. <Conclusion> The left ventricle is normal size. There is normal left ventricular wall thickness. Left ventricular systolic function is normal. The left ventricular ejection fraction is within the normal range. LVEF is 55-60%. This study is not technically sufficient to allow evaluation of the LV diastolic function due to atrial fibrillation. Right ventricle is mild to moderately dilated. The right ventricular systolic function is normal. Left atrium is moderately dilated. Right atrium is moderately dilated. Mild aortic valve sclerosis. Mild aortic regurgitation. There is no aortic valvular stenosis. There is mitral annular calcification. The tricuspid valve is normal in structure. Mild to moderate tricuspid regurgitation. Moderate pulmonary hypertension. IVC is dilated. There is no pericardial effusion. There is normal LV segmental wall motion. <ELECTRONICALLY SIGNED> By: Aravind Malik MD, FACC 10/04/201702 02 02 Aravind Malik MD, FACC /INF
--- NOTE | 2020-10-04 17:25 | CARD ---
[address] [address] CARDIAC CATH REPORT Name: HANG ALFORD Room: [address] ADM IN .R.#: [id number] Admission: 10/03/20 Attend Phys: Dawit Christianson MD Discharge: Date of : 47 Report #: [id number] THIS REPORT FOR: cc: Cherry Toledo MD, Lin W. MD ~ Aravind Malik MD [facility] APPROVED REPORT Study performed: 10/04/2020 15:07:13 Patient Details Patient Status: In-Patient Room #: The patient is a 74 year-old male Event Personnel Aravind Malik Soil Conservation Teacher, Concha Kellogg RN University Partnership Rep, Taqueria Wang RTR Scrub, Riya Hutson RTR Monitor Procedures Performed Art Access - R femoral artery, Left Heart Cath w/or w/o Coronaries LHC, SHAN Place w/wo Plasty Single LAD, PTCA Addl Branch DIAG , Hemostasis w/ Angioseal Indication Unstable angina Risk Factors Hypercholesterolemia, Hypertension Admission/Lab Medications/Medications given during procedure Angiomax IV 19 ml, Angiomax Drip IV 43.47 ml per hr, Effient PO 60 mg, Aspirin PO 162 mg Procedure Narrative The patient was brought electively to the Cardiac Catheterization Laboratory and was prepped and draped in a sterile manner. The right femoral was infiltrated with 2% Lidocaine subcutaneous anesthesia. A 6F Fillmore sheath was inserted into the right femoral artery. Coronary angiography was performed using coronary diagnostic catheters. The right coronary system was accessed and visualized with a 6F JR4 catheter. The left coronary system was accessed and visualized with a 6F JL4 catheter. The left ventricle was accessed and visualized with a 6F Straight Pigtail catheter. Left ventricular/Aortic Valve gradient assessed [place] [address] CARDIAC CATH REPORT Name: HANG ALFORD Room: [address] IN [facility]#: [id number] Admission: 10/03/20 Attend Phys: Dawit Christianson MD Discharge: Date of : 47 Report #: [id number] Left ventriculogram was performed in SÁNCHEZ projection. Pre-demployment femoral angiogram was performed . Closure device was deployed with a 6 Fr Angioseal STS. The patient tolerated the procedure well and there were no complications associated with the procedure. There was no hematoma. Intraoperative Conscious Sedation Sedation start time: 15:37 Case end Time: 16:24 Fentanyl 25 mcg Versed 1 mg Fluoro Time: 11.3 minutes Dose: DAP [id number] cGycm2 2334 mGy Contrast Type and Amount: Visipaque 305 ml Diagnostic Cath Left Main 0% narrowing LAD 10% ostial narrowing with 75% clefted calcified proximal LAD stenosis with 90% stenosis of the takeoff of the first diagonal branch and 40% mid LAD narrowing Circumflex Small nondominant vessel with 40% proximal narrowing Right Coronary Large dominant vessel with 40% tubular mid vessel narrowing Ramus Prominent vessel with 40% mid vessel narrowing Left Ventriculography The left ventricle is normal in size with normal contractility. The left ventricular ejection fraction is estimated to be 55-60%. Left ventricular wall motion abnormalities are not present. There is no mitral insufficiency. Hemodynamics The aortic pressure is 154/69 mmHg with a mean of 102 mmHg. The left ventricular pressure is 155/-1 mmHg with a mean of mmHg. The left ventricular end diastolic pressure is 11 mmHg. PCI Technique Lesion Anticoagulation was achieved with Angiomax. Patient was preloaded with Angiomax IV 19 ml. Percutaneous coronary intervention was performed on the first diagnonal branch segment. The lesion stenosis prior to intervention was 90% with BEVERLY flow. A 6F XBLAD 3.5 Guide Catheter was used to engage the lm ostium. A BMW 190cm Interventional Guidewire was used to cross the [place] [address] CARDIAC CATH REPORT Name: HANG ALFORD Room: [address] IN [facility]#: [id number] Admission: 10/03/20 Attend Phys: Dawit Christianson MD Discharge: Date of : 47 Report #: [id number] Balloon catheter IL Trek RX 2.25 x 12 was inserted and inflated up to 14atm for 11seconds. Additional Inflation: 18atm for 9seconds. Additional Inflation: 18atm for 10seconds. Final angiography reveals 50 % stenosis with BEVERLY 3 flow. PCI Technique Lesion 2 Percutaneous Coronary Intervention was performed on the proximal left anterior descending artery segment. Patient was preloaded with Angiomax IV 19 ml. The lesion stenosis prior to intervention was 75% with BEVERLY 3 flow. A 6F XBLAD 3.5 Guide Catheter was used to engage the lm ostium. A ProwaterFlex 180 cm Interventional Guidewire was used to cross the lesion. Balloon Dilation A Balloon catheter NC Trek RX 3.0 x 12 was inserted and inflated up to 16atm for 9seconds. Additional Inflation: 15atm for 11seconds. Stent Deployment A drug-eluting stent Talmo RX Stent 3.0 x 18 mm was inserted and inflated up to 12atm for 8seconds. Additional Inflation: 14atm for 10seconds. Final angiography reveals 0 % stenosis with BEVERLY 3 flow. Conclusion 1. Significant coronary artery disease characterized by the following: A 75% clefted proximal LAD stenosis with 90% ostial stenosis of the diagonal as it emanated from this region B 40% narrowing of the proximal portion of the nondominant circumflex C 40% narrowing in the midportion of the ramus intermedius D 40% tubular narrowing of the dominant right coronary artery in its midportion 2. Normal left ventricular systolic function, estimated ejection fraction being 55 to 60% 3. Mild [place] [address] CARDIAC CATH REPORT Name: HANG ALFORD Room: [address] IN [facility]#: [id number] Admission: 10/03/20 Attend Phys: Dawit Christianson MD Discharge: Date of : 47 Report #: [id number] 4. Successful PCI with deployment of drug-eluting stent at site of 75% proximal LAD stenosis with 0% residual narrowing and BEVERLY-3 flow to the distal vessel proximal 5. Successful PTCA at the site of 90% ostial first diagonal stenosis with 50% residual narrowing and BEVERLY-3 flow to the distal vessel Recommendations Cardiac Risk Reduction Program Aggressive Medical Therapy Medications Administered Aspirin (any) Prasugrel Diagnostic Cath Approved by: Aravind Malik MD Date/Time: 10/04/2020 17:20:20 <ELECTRONICALLY SIGNED> By: Aravind Malik MD, [facility] 10/04/20 1724 1724 1724Aravind Malik MD, FACC /INF
--- NOTE | 2020-10-04 17:31 | EKG ---
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: FELIPE : 1945 Requested By: Christy Javed Order Number: [id number] Julio MD: Aravind Malik Measurements Intervals [place] Rate: 70 P: [place]: QRS: -3 QRSD: 125 T: 61 QT: 443 QTc: 479 Interpretive Statements Atrial fibrillation Nonspecific intraventricular conduction delay Compared to ECG 10/03/2020 14:57:52 Early repolarization no longer present Electronically Signed On 10-04-2020 17:31:15 WIND UP WORKER by Aravind Malik [email or web address] <ELECTRONICALLY SIGNED> By: Aravind Malik MD, FAC 10/04/20 1731 1337 1337 Aravind Malik MD, [facility] /EPI
[2020-10-05] VITALS: BP 141/76
[2020-10-05 04:24] LABS: ABSOLUTE EOSINOPHILS 0.1 thou/uL (0.0-0.7); ABSOLUTE LYMPHOCYTES 1.7 thou/uL (0.8-5.3); ABSOLUTE MONOCYTES 0.5 thou/uL (0.0-1.2); BASOPHILS 0.4 %; EOSINOPHILS 1.1 %; HEMATOCRIT 32.2 % (42.0-52.0); HEMOGLOBIN 11.1 gm/dL (14.0-18.0); LYMPHOCYTES 26.3 %; MCH 31.5 pg (26.0-34.0); MCHC 34.6 g/dL (28.0-37.0); MCV 90.8 fL (80.0-100.0); MONOCYTES 8.5 %; MPV 7.6 fl. (7.2-11.1); NUCLEATED RBCS 0 /100WBC; PLATELET COUNT* 205 thou/uL (150-400); POLYS 63.7 %; RBC 3.54 mil/uL (4.50-6.00); RDW-CV 15.1 % (10.5-14.5); WBC 6.3 thou/uL (4.0-11.0)
[2020-10-05 04:30] VITALS: BP 147/69
[2020-10-05 04:43] LABS: ALBUMIN 3.1 g/dL (3.4-5.0); CALCIUM 8.3 mg/dL (8.5-10.1); CREATININE 0.8 mg/dL (0.6-1.3); POTASSIUM 3.6 mmol/L (3.5-5.1); TOTAL BILIRUBIN 0.6 mg/dL (<0.1-1.0); TOTAL PROTEIN 6.3 g/dL (6.4-8.2)
[2020-10-05 05:01] LABS: INR 1.1; PROTIME 11.7 Seconds (9.20-11.50)
[2020-10-05] MEDS ORDERED: ASPIR 8181 MG PO (07:51)
[2020-10-05] MEDS ORDERED: EFFIENT10 MG PO (07:51)
[2020-10-05 08:00] VITALS: BP 124/71
[2020-10-05 11:15] VITALS: BP 124/71
[2020-10-05 11:56] VITALS: BP 124/71
[2020-10-05] MEDS ORDERED: NITROGLYCERIN0.4 MG SUBLING (12:11)
--- NOTE | 2020-10-05 12:52 | EKG ---
[place] [address] ELECTROCARDIOGRAM REPORT Name: HANG ALFORD Room: [address] ADM IN .R.#: [id number] Admission: 10/03/20 Attend Phys: Dawit Christianson, Discharge: Date of : 47 Date of Service: 10/05/20 0422 Report #: [id number] THIS REPORT FOR: //name// [facility] Test Date: 2020-10-05 Test Time: 04:22:09 Pat Name: HANG ALFORD Department: Room: [address] Gender: M Process Inspector: MELIZA : 1945 Requested By: Aravind Malik Order Number: [id number] Julio MD: Aravind Malik Measurements Intervals [place] Rate: 78 P: [place]: QRS: -11 QRSD: 130 T: 46 QT: 430 QTc: 490 Interpretive Statements Atrial fibrillation IVCD, consider incomplete right bundle branch block Baseline wander in lead(s) V1 Compared to ECG 10/04/2020 13:37:57 No significant changes Electronically Signed On 10-05-2020 12:52:02 CHIEF PORT DIRECTOR by Aravind Malik [email or web address] <ELECTRONICALLY SIGNED> By: Aravind Malik MD, [facility] 10/05/20 1252 042 042 Aravind Malik MD, [facility] /EPI
== END 2020-10-05 13:28 | disposition home health service (06) | DRG 246 ==
LOC: M.ERS 14:52 → M.TBA-ER 16:05 → M.2W 16:05
PROVIDERS: Emergency Medicine; Registered Nurse; ADMIT Internal Medicine; ATTEND Internal Medicine
PROC: 027034Z Dilation of Coronary Artery, One Artery with Drug-eluting Intraluminal Device, Percutaneous Approach (ICD-10-PCS; principal; 2020-10-04)
PROC: 4A023N7 Measurement of Cardiac Sampling and Pressure, Left Heart, Percutaneous Approach (ICD-10-PCS; principal; 2020-10-04)
PROC: B41FYZZ Fluoroscopy of Right Lower Extremity Arteries using Other Contrast (ICD-10-PCS; principal; 2020-10-04)
PROC: B211YZZ Fluoroscopy of Multiple Coronary Arteries using Other Contrast (ICD-10-PCS; principal; 2020-10-04)
PROC: B215YZZ Fluoroscopy of Left Heart using Other Contrast (ICD-10-PCS; principal; 2020-10-04)
DX: I25.110 Atherosclerotic heart disease of native coronary artery with unstable angina pectoris (principal); I50.33 Acute on chronic diastolic (congestive) heart failure; I48.20 Chronic atrial fibrillation, unspecified; I11.0 Hypertensive heart disease with heart failure; G20 Parkinson's disease; Z20.828 Contact with and (suspected) exposure to other viral communicable diseases; I48.91 Unspecified atrial fibrillation; G25.81 Restless legs syndrome; E87.6 Hypokalemia; F41.9 Anxiety disorder, unspecified; G89.29 Other chronic pain; Z80.1 Family history of malignant neoplasm of trachea, bronchus and lung; Z91.14 Patient's other noncompliance with medication regimen; Z79.899 Other long term (current) drug therapy; Z90.49 Acquired absence of other specified parts of digestive tract

== ENCOUNTER 2020-11-30 15:29 | Inpatient (IN) | payer BC ==
[~2020-11-30] VITALS: Ht 185.4 cm; Wt 117.9 kg
[~2020-11-30 15:29] MED LIST changes: +ASPIR 8181 MG PO; +EFFIENT10 MG PO; +NITROGLYCERIN0.4 MG SUBLING
[2020-11-30 15:30] VITALS: BP 135/56
--- NOTE | 2020-11-30 15:46 | NUR ---
CONTACTED [facility] AND SPOKE WITH MILY [phone], SHE STATES THAT THEY DO HAVE PAPERWORK STARTED FOR PT TO BE ADMITTED THERE IF HIS INSURANCE WILL ALLOW IT. SHE STATES THAT PT WILL NEED ADMITTED TO THE HOSPITAL IN ORDER FOR THEM TO BE ABLE TO TAKE HIM.
[2020-11-30 15:50] LABS: ABSOLUTE EOSINOPHILS 0.1 thou/uL (0.0-0.7); ABSOLUTE LYMPHOCYTES 1.7 thou/uL (0.8-5.3); ABSOLUTE MONOCYTES 0.3 thou/uL (0.0-1.2); ABSOLUTE NEUTROPHILS 2.8 thou/uL (1.6-8.1); BASOPHILS 0.5 %; EOSINOPHILS 1.4 %; HEMATOCRIT 31.8 % (42.0-52.0); LYMPHOCYTES 34.2 %; MCH 30.9 pg (26.0-34.0); MCHC 34.6 g/dL (28.0-37.0); MCV 89.5 fL (80.0-100.0); MPV 7.7 fl. (7.2-11.1); NUCLEATED RBCS 0 /100WBC; PLATELET COUNT* 173 thou/uL (150-400); POLYS 56.9 %; RBC 3.55 mil/uL (4.50-6.00); WBC 4.9 thou/uL (4.0-11.0)
[2020-11-30 15:59] LABS: CALCIUM 8.4 mg/dL (8.5-10.1); CREATININE 0.8 mg/dL (0.6-1.3); POTASSIUM 3.1 mmol/L (3.5-5.1)
[2020-11-30 16:01] LABS: APTT 27.3 Seconds (25.0-31.3); INR 1.1; PROTIME 11.4 Seconds (9.20-11.50)
[2020-11-30 16:08] LABS: ALBUMIN 3.4 g/dL (3.4-5.0); TOTAL PROTEIN 6.5 g/dL (6.4-8.2)
[2020-11-30 17:11] LABS: URINE BILIRUBIN NEGATIVE (Negative); URINE BLOOD 1+ (Negative); URINE CLARITY CLEAR; URINE COLOR YELLOW; URINE GLUCOSE-RANDOM NEGATIVE (Negative); URINE KETONES TRACE (Negative); URINE LEUKOCYTES-REFLEX NEGATIVE (Negative); URINE NITRITE-REFLEX NEGATIVE (Negative); URINE PROTEIN NEGATIVE (Negative)
[2020-11-30 17:30] LABS: SQUAMOUS 0-3 Few /LPF (0-3); URINE WBC-REFLEX 6-15 Few /HPF (0-5)
[2020-11-30 17:31] LABS: CASTS None Seen /LPF (None Seen); CRYSTALS None Seen /LPF (None Seen); MUCUS 0-3 Light strn/LPF (None Seen)
[2020-11-30 20:00] VITALS: BP 159/49
[2020-11-30 20:15] VITALS: BP 120/51
[2020-11-30 21:30] VITALS: BP 159/49
--- NOTE | 2020-12-01 04:32 | NUR ---
PT ARRIVE TO THE UNIT AT ABOUT 2100. A&O X 3, FORGETFUL AT TIMES. NO C/O PAIN. MEDS GIVEN ORDERED. SNACKS GIVEN PER PT REQUEST. WOLF IN PLACE. PT SLEPT MOST OF THE NIGHT. CALL LIGHT WITHIN REACH. WILL CONTINUE TO MONITOR.
[2020-12-01 06:04] LABS: HEMATOCRIT 27.7 % (42.0-52.0); HEMOGLOBIN 9.5 gm/dL (14.0-18.0); MCH 30.6 pg (26.0-34.0); MCHC 34.4 g/dL (28.0-37.0); MPV 8.3 fl. (7.2-11.1); RBC 3.11 mil/uL (4.50-6.00); RDW-CV 14.1 % (10.5-14.5); WBC 4.8 thou/uL (4.0-11.0)
[2020-12-01 06:45] LABS: CALCIUM 7.1 mg/dL (8.5-10.1); CREATININE 0.8 mg/dL (0.6-1.3)
[2020-12-01 06:48] LABS: POTASSIUM 2.7 mmol/L (3.5-5.1)
[2020-12-01 08:19] LABS: MAGNESIUM 1.6 mg/dL (1.8-2.4); PHOSPHORUS* 3.7 mg/dL (2.5-4.9)
--- NOTE | 2020-12-01 10:56 | EKG ---
[place] [address] ELECTROCARDIOGRAM REPORT Name: HILARYEMILEEHANG [address] [id number] Admission: 11/30/20 Attend Phys: Neha Smiley MD Discharge: Date of : 47 Date of Service: 11/30/20 1539 Report #: [id number] THIS REPORT FOR: //name// [facility] ED Test Date: 2020-11-30 Test Time: 15:39:17 Pat Name: HANG ALFORD Department: Room: [facility] Gender: M Salvage Inspector: CCD : 1945 Requested By: Fuad Jacob Order Number: [id number] MD: Juan Aguilar Measurements Intervals [place] Rate: 68 P: [place]: QRS: -5 QRSD: 163 T: 33 QT: 453 QTc: 482 Interpretive Statements Atrial fibrillation Right bundle branch block Compared to ECG 10/05/2020 04:22:09 no change Electronically Signed On 12-01-2020 10:56:15 CLERICAL SPECIALIST by Juan Aguilar [email or web address] <ELECTRONICALLY SIGNED> By: Juan Aguilar MD, FAC 12/01/20 1056 1539 1539 Juan Aguilar MD, [facility] /EPI
[2020-12-01 11:08] VITALS: BP 117/92
--- NOTE | 2020-12-01 13:52 | NUR ---
CM SPOKE TO THE PT TO DISCUSS CM ASSESSMENT. PT DROWSY, BUT ABLE TO RESPOND TO CM ASSESSEMENT QUESTIONS. PT INFORMS THAT HE IS NORMALLY ABLE TO TAKE CARE OF HIMSELF AT HOME. PT RESIDES AT HOME ALONE. PT USES A CANE OR A WALKER FOR MOBILITY. PT IS CURRENTLY ON-SERVICE WITH [facility] . CM INFORMED BY THE PT THAT HE HAS BEEN WORKING WITH HOSEA GUTIERREZ TO GET INTO SNF AT . REVIEW OF ER NOTES INDICATE THAT THIS HAS BEEN CONFIRMED AND MILY WITH IS WORKING WITH PT'S INSURANCE. HOWEVER PT WILL NEED PT/OT EVALS TO ASSIST WITH INSURANCE AUTH FOR SNF. CM TO FAX PT/OT EVAL NOTES WHEN AVAILABLE. CM WILL REMAIN AVAILABLE TO ASSIST AND FOLLOW NEEDED. HOSEA GUTIERREZ [facility] PHONE: [phone] FAX: [phone]
--- NOTE | 2020-12-01 17:10 | NUR ---
PT A&Ox4, FORGETFUL. DENIED PAIN, N/V. UP WITH 1 USING GAITBELT, WALKER. NEEDS CUING WHEN AMBULATING. WAITING FOR CULTURES TO COME BACK SO PT CAN BE PLACED IN SNF. TOLERATING DIET. CALL LIGHT WITHIN REACH. FALL PRECAUTIONS IN PLACE. WILL CONTINUE TO MONITOR.
[2020-12-01 20:00] VITALS: BP 139/59
[2020-12-02 05:02] LABS: HEMATOCRIT 28.5 % (42.0-52.0); HEMOGLOBIN 10.4 gm/dL (14.0-18.0); MCH 32.2 pg (26.0-34.0); MCHC 36.3 g/dL (28.0-37.0); MCV 88.7 fL (80.0-100.0); MPV 8.1 fl. (7.2-11.1); RBC 3.21 mil/uL (4.50-6.00); WBC 6.5 thou/uL (4.0-11.0)
[2020-12-02 05:12] LABS: CALCIUM 7.4 mg/dL (8.5-10.1); CREATININE 0.8 mg/dL (0.6-1.3); POTASSIUM 3.3 mmol/L (3.5-5.1)
--- NOTE | 2020-12-02 05:18 | NUR ---
ASSUMED PT'S CARE THIS PM SHIFT. ALERT AND ORIENTED. FORGETFUL. VSS ON RA. IRREG HR. AFIB PER HX. MEDS GIVEN PER EMAR. PT SLEPT WELL THIS SHIFT. Q2 TURNS. WOLF IN PLACE FOR VOIDING. INCONT OF BOWEL THIS SHIFT. FALL PRECAUTION IN PLACE. ELYTE REPLACEMENT IN PLACE. FALL RISK. FALL PRECAUTION IN PLACE. ACCUCHECK. CALL LIGHT WITHIN REACH. WILL CONTINUE TO MONITOR.
[2020-12-02 08:00] VITALS: BP 122/62
[2020-12-02 16:41] VITALS: BP 136/59
--- NOTE | 2020-12-02 18:03 | NUR ---
PT REMAINS IN BED. COMPLAINS OF RESTLESS LEG AT TIMES. PT GIVEN PRN FLEXERIL NEEDED. WOLF TAKEN OUT PER ORDER. NO STOOL THIS SHIFT. PT HAS LEFT SIDED WEAKNESS. COUGH AT TIMES. PT REMAINED IN BED. DROWSY AT TIMES. LOW BS THIS AM CORRECTED. ENCOURAGED PO INTAKE OF FOOD AND FLUIDS. WILL CONTINUE TO MONITOR.
[2020-12-03 06:27] LABS: HEMATOCRIT 29.7 % (42.0-52.0); MCH 30.6 pg (26.0-34.0); MCHC 33.7 g/dL (28.0-37.0); MCV 90.9 fL (80.0-100.0); RBC 3.27 mil/uL (4.50-6.00); RDW-CV 14.1 % (10.5-14.5); WBC 4.7 thou/uL (4.0-11.0)
[2020-12-03 06:46] LABS: CALCIUM 7.5 mg/dL (8.5-10.1); CREATININE 0.8 mg/dL (0.6-1.3); POTASSIUM 3.6 mmol/L (3.5-5.1)
[2020-12-03 08:20] VITALS: BP 142/76
--- NOTE | 2020-12-03 10:15 | NUR ---
FAXED UPDATED CLINICAL INFORMATION INCLUDING PT/OT NOTES TO MILY AT [facility] [phone]. THEY WILL ACCEPT PT. PENDING INSURANCE AUTHORIZATION.
[2020-12-03 16:42] VITALS: BP 130/69
--- NOTE | 2020-12-03 17:41 | NUR ---
PATIENT ALERT AND ORIENTED X 3-4. FORGETFUL AT TIMES. VITAL SIGNS STABLE ON ROOM AIR. UP WITH ASSIST OF 1 TO THE CHAIR. UP TO CHAIR FOR MEALS. IV PATENT AND SALINE LOCKED. DENIES PAIN AND NAUSEA AT THIS TIME. FALL PRECAUTIONS IN PLACE AND BED ALARM ON. HOURLY ROUNDS MAINTAINED THROUGHOUT THE SHIFT. CALL LIGHT WITHIN REACH.
[2020-12-03 19:51] VITALS: BP 129/72
--- NOTE | 2020-12-04 04:30 | NUR ---
PT A&O, VSS ON ROOM AIR, IV SALINE LOCKED, PAIN MED REQUESTED 1X FOR HEADACHE AND GIVEN ORDERED, PT REPOSITIONED Q2H, PT IS SLEEPING WELL THIS SHIFT. WILL CONTINUE TO MONITOR.
[2020-12-04 08:10] VITALS: BP 146/64
[2020-12-04 09:16] VITALS: BP 143/64
--- NOTE | 2020-12-04 09:24 | NUR ---
MILY/HOSEA GUTIERREZ CALLED AND HAS INSURANCE AUTHORIZATION FOR PT.TO COME TO A SKILLED BED THERE. NOTIFIED ANGI GALE. FAXED DISCHARGE SUMMARY TO MILY. NOTIFIED DR. MINOR WILL CALL TO CHECK ON A SCREEN MAKER TIME FOR WC VAN.
--- NOTE | 2020-12-04 13:30 | NUR ---
PHONE CALL TO OSWALDO AT [facility]. REPORT GIVEN TO RN. INFORMED PT JUST LEFT. PHONE NUMBER GIVEN IN CASE OF QUESTIONS.
--- NOTE | 2020-12-04 13:40 | NUR ---
PT REMAINS ALERT AND ORIENTED. PT DRESSED AND SITTING IN CHAIR. JUST FINISHED LUNCH. IV TAKEN OUT. VSS. TRANSFERRED TO W/C WITH GAIT BELT. TAKEN VIA WHEEL CHAIR VAN.
== END 2020-12-04 13:43 | DRG 292 ==
LOC: M.ERS 15:29 → M.TBA-ER 17:34 → M.3W 21:00
PROVIDERS: Family Medicine; ADMIT Family Medicine; ATTEND Family Medicine
DX: I11.0 Hypertensive heart disease with heart failure (principal); D68.69 Other thrombophilia; E87.6 Hypokalemia; I50.33 Acute on chronic diastolic (congestive) heart failure; I48.0 Paroxysmal atrial fibrillation; G20 Parkinson's disease; E11.9 Type 2 diabetes mellitus without complications; G25.81 Restless legs syndrome; R62.7 Adult failure to thrive; F41.9 Anxiety disorder, unspecified; G89.29 Other chronic pain; E86.0 Dehydration; E83.51 Hypocalcemia; Z20.822 Contact with and (suspected) exposure to COVID-19; Z91.14 Patient's other noncompliance with medication regimen; Z79.82 Long term (current) use of aspirin; Z79.01 Long term (current) use of anticoagulants; Z79.4 Long term (current) use of insulin; Z79.899 Other long term (current) drug therapy; Z68.34 Body mass index [BMI] 34.0-34.9, adult

== ENCOUNTER 2021-01-05 22:05 | Inpatient (IN) | payer BC ==
[~2021-01-05] VITALS: Ht 185.4 cm; Wt 113.7 kg
--- NOTE | ~2021-01-05 | EMS ---
[address] [address] EMS Patient Care Report Name: ANTHONY ALFORD Room: [address] IN M.R.#: [id number] Admission: 01/06/21 Attend Phys: Artem Rockwell MD Discharge: Date of : 47 Report #: [id number] THIS REPORT FOR: //name// Report Transmitted: 01/08/2021 07:48 EMS Care Summary [facility] [place] Incident [id number] @ 01/05/2021 21:25 Incident Location [address] [place] [address] Patient Anthony Alford Male, 75 Years 1945 Patient Address [address] [place] [address] Patient History Parkinson's Disease,Atrial Fibrillation,Congestive Heart Failure (CHF), Patient Allergies No known allergies, Patient Medications Aspirin, Lipitor, Sinemet, Diltiazem, Finasteride, Furosemide, Chief Complaint Bleeding Disposition Transported No Lights/[place] Dispatch Reason Hemorrhage/Laceration Transported To [facility] Narrative [facility] dispatched to stated location for elderly male pt with coffee ground emesis. On arrival to the scene, we were directed to the pt's room, where he was found lying in bed. Staff advised that the pt has been sick for 2-3 days with nausea/vomiting, but prior to 911 contact, pt vomited and a coffee [address] [place] [address] EMS Patient Care Report Name: ANTHONY ALFORD Room: [address] ADM IN M.R.#: [id number] Admission: 01/06/21 Attend Phys: Artem Rockwell MD Discharge: Date of : 47 Report #: [id number] ground-like substance was noted. She advised that it was mixed with other emesis, and that it was approximately quarter-sized in diameter. Pt was moved to the stretcher, secured, and moved to the ambulance. Once on board, vital signs and assessment were as noted. Pt rested comfortably during transport, which was short. No overall change in pt condition noted while en route. No vomiting wwas noted while pt was in our care. In person handoff report given to receiving nurse as indicated. Pt care transferred without incident. Unit in service. End of report Damaris Restrepo [id number] Initial Vitals @21:45SpO2: 99, @21:52SpO2: 98, @21:43P: 87,R: 14,BP: 151/73, @21:52P: 93,R: 16,BP: 153/73, @21:43GCS: 15, @21:52GCS: 15, Assessments @21:33MENTAL:SKIN:HEENT:LUNG SOUNDS:ABDOMEN:PELVIS//GI:EXTREMITIES:PULSE:NEURO: Impression Gastrointestinal hemorrhage Timeline :,Call Received :,Dispatch Notified 21:24,Psap Call 21:25,Dispatched 21:25,En Route 21:28,On Scene 21:33,At Patient 21:43,BP: 151/73 M,PULSE: 87,RR: 14 R,SPO2: Ox,ETCO2: ,BG: ,PAIN: ,GCS: , 21:43,BP: / M,PULSE: ,RR: R,SPO2: Ox,ETCO2: ,BG: ,PAIN: ,GCS: 15, 21:45,BP: / M,PULSE: ,RR: R,SPO2: 99 Ox,ETCO2: ,BG: ,PAIN: ,GCS: , 21:47,Depart Scene 21:52,BP: / M,PULSE: ,RR: R,SPO2: 98 Ox,ETCO2: ,BG: ,PAIN: ,GCS: , 21:52,BP: 153/73 M,PULSE: 93,RR: 16 R,SPO2: Ox,ETCO2: ,BG: ,PAIN: ,GCS: , 21:52,BP: / M,PULSE: ,RR: R,SPO2: Ox,ETCO2: ,BG: ,PAIN: ,GCS: 15, 21:55,At Destination 22:11,Call Closed Disclaimer v1.1 Copyright 2020 [employer] This EMS Care Summary contains data elements from the [place] [address] EMS Patient Care Report Name: ANTHONY ALFORD YAHAIRA Room: [address] ADM IN M.R.#: [id number] Admission: 01/06/21 Attend Phys: Artem Rockwell MD Discharge: Date of : 47 Report #: [id number] (which may be displayed differently). It is designed to provide pertinent information for the following purposes: continuity of care, clinical quality, and state data reporting. The complete legal record is available to ED staff and administrators of the receiving hospital in [facility]'s Patient Tracker. All data is provided "as is."
--- NOTE | ~2021-01-05 | CON ---
[address] [address] CONSULTATION Name: HANG ALFORD Room: [address] ADM IN M.R.#: [id number] Admission: 01/06/21 Attend Phys: Artem Rockwell MD Discharge: Date of : 47 Report #: [id number] THIS REPORT FOR: cc: Cherry Toledo MD, Lin W. MD ~ Kyleigh Feng MD DATE OF SERVICE: 01/06/2021 REASON FOR CONSULT: Coffee-ground emesis. HISTORY OF PRESENT ILLNESS: This is a 75-year-old male who reports that he had a stroke a month ago. He lives in a fpc and was brought to hospital mainly because of couple episodes of emesis that were coffee-grounds. Since admission, he has not had any vomiting. He had a CT of abdomen and pelvis, which showed some thickening in the distal esophagus. He also has a nodular contouring of the liver, which may suggest cirrhosis. He denies ever having any alcohol consumption. The patient's liver enzymes also elevated with bilirubin above 2. The patient denies ever knowing anything about liver disease. There is also a questionable area in the pancreas, which has not changed from previous study. PAST MEDICAL HISTORY: Significant for history of Parkinson disease, CHF, AFib, diabetes mellitus, hypertension. ALLERGIES: No known drug allergy. MEDICATIONS: Please refer to MAR. SOCIAL HISTORY: The patient denies alcohol and tobacco use. FAMILY HISTORY: Noncontributory. PHYSICAL EXAMINATION: VITAL SIGNS: Reveals blood pressure of 152/87, respirations 21, pulse 100, temperature 97.4. LUNGS: Clear. CARDIOVASCULAR: Regular. ABDOMEN: Soft, nontender, nondistended. Bowel sounds are positive. NEUROLOGIC: The patient is able to answer questions appropriately. LABORATORY DATA: Labs reveal sodium of 137, potassium 3.2, BUN is 14, creatinine 0.6, glucose 148, AST is 153, ALT is 19, alkaline phosphatase 454, [place] [address] CONSULTATION Name: ANNSORENHANG HEBERT Room: [address] IN [facility]#: [id number] Admission: 01/06/21 Attend Phys: Artem Rockwell MD Discharge: Date of : 47 Report #: [id number] total bilirubin is 2.7. WBC is 7.8 with hemoglobin of 11.1 and platelet of 201. IMAGING: CT of abdomen and pelvis was obtained. This is significant for circumferential wall thickening within the distal transverse, descending and rectosigmoid colon, which may be consistent with colitis. There is also distended gallbladder without any gallstones or CT evidence of acute cholecystitis. There is a stable 1 cm cystic lesion within the proximal pancreatic body, which stable compared to prior study. There is nodularity of the liver contour suggestive of cirrhosis. There is also marked cardiomegaly with bibasilar atelectasis or infiltrates with small pleural effusion noted. ASSESSMENT AND PLAN: The patient with abnormal liver enzymes and imaging suggestive of cirrhosis. He has some thickening in the distal esophagus and he is on Effient. He has not received any Effient today. I will go ahead and evaluate his distal esophagus and consider ruling out varices. We will make further recommendations based on finding. The patient also has his liver abnormalities should be worked up as he never known that he has cirrhosis or liver disease. By: [id number] Cece Feng MD /nt
--- NOTE | ~2021-01-05 | PROC ---
[address] [address] PROCEDURE REPORT Name: HANG ALFORD Room: [address] IN M.R.#: [id number] Admission: 01/06/21 Attend Phys: Artem Rockwell MD Discharge: Date of : 47 Report #: [id number] THIS REPORT FOR: cc: Cherry Toledo MD, Lin W. MD ~ [facility],Medical Records Staff For GI report, please see the Provation report in Perceptive 7 content. By: [id number] Records Staff [facility] /DEL
[2021-01-05 22:07] VITALS: BP 140/75
[2021-01-05 22:36] LABS: ABSOLUTE LYMPHOCYTES 1.2 thou/uL (0.8-5.3); ABSOLUTE MONOCYTES 0.5 thou/uL (0.0-1.2); ABSOLUTE NEUTROPHILS 5.6 thou/uL (1.6-8.1); BASOPHILS 0.1 %; EOSINOPHILS 0.1 %; HEMATOCRIT 33.6 % (42.0-52.0); HEMOGLOBIN 11.2 gm/dL (14.0-18.0); LYMPHOCYTES 16.2 %; MCHC 33.3 g/dL (28.0-37.0); MCV 90.2 fL (80.0-100.0); MONOCYTES 6.3 %; MPV 7.9 fl. (7.2-11.1); NUCLEATED RBCS 0 /100WBC; PLATELET COUNT* 194 thou/uL (150-400); POLYS 77.3 %; RBC 3.72 mil/uL (4.50-6.00); RDW-CV 15.3 % (10.5-14.5); WBC 7.3 thou/uL (4.0-11.0)
[2021-01-05] MEDS ORDERED: VANCOCIN 125 M125 M1 PO (22:38)
[2021-01-05 22:46] LABS: CALCIUM 7.7 mg/dL (8.5-10.1); CREATININE 0.8 mg/dL (0.6-1.3); POTASSIUM 3.3 mmol/L (3.5-5.1)
[2021-01-05 22:50] LABS: APTT 23.6 Seconds (25.0-31.3); PROTIME 10.9 Seconds (9.20-11.50)
[2021-01-05 23:01] LABS: ALBUMIN 2.4 g/dL (3.4-5.0); MAGNESIUM 1.7 mg/dL (1.8-2.4); TOTAL BILIRUBIN 2.7 mg/dL (<0.1-1.0)
[2021-01-06] VITALS (67 sets, daily range): BP systolic 119–178; BP diastolic 48–127
[2021-01-06] MEDS ORDERED: ACETAMINOPHEN325 MG PO (03:44)
[2021-01-06] MEDS ORDERED: FLOMAX0.4 MG PO (03:44)
[2021-01-06] MEDS ORDERED: MUCUS-ER MAX1200 MG PO (03:45)
[2021-01-06] MEDS ORDERED: IPRAT-ALBUT 0.5-3 ML INH (03:47)
[2021-01-06] MEDS ORDERED: ZOFRAN4 MG PO (03:48)
[2021-01-06 07:41] LABS: ABSOLUTE LYMPHOCYTES 1.2 thou/uL (0.8-5.3); BASOPHILS 0.2 %; LYMPHOCYTES 15.2 %; NUCLEATED RBCS 0 /100WBC
[2021-01-06 07:42] LABS: ABSOLUTE MONOCYTES 0.5 thou/uL (0.0-1.2); ABSOLUTE NEUTROPHILS 6.1 thou/uL (1.6-8.1); CREATININE 0.6 mg/dL (0.6-1.3); MCH 30.2 pg (26.0-34.0); MCHC 33.2 g/dL (28.0-37.0); MCV 90.7 fL (80.0-100.0); MONOCYTES 6.6 %; MPV 8.4 fl. (7.2-11.1); PLATELET COUNT* 201 thou/uL (150-400); POTASSIUM 3.2 mmol/L (3.5-5.1); RBC 3.64 mil/uL (4.50-6.00); RDW-CV 15.5 % (10.5-14.5); WBC 7.8 thou/uL (4.0-11.0)
[2021-01-06 13:11] LABS: HEMATOCRIT 35.1 % (42.0-52.0); HEMOGLOBIN 11.6 gm/dL (14.0-18.0)
[2021-01-07] VITALS (7 sets, daily range): BP systolic 117–134; BP diastolic 63–95
[2021-01-07 04:09] LABS: HEMATOCRIT 31.3 % (42.0-52.0); HEMOGLOBIN 10.4 gm/dL (14.0-18.0); MCHC 33.2 g/dL (28.0-37.0); MCV 90.3 fL (80.0-100.0); MPV 7.7 fl. (7.2-11.1); RBC 3.47 mil/uL (4.50-6.00); RDW-CV 15.3 % (10.5-14.5); WBC 10.9 thou/uL (4.0-11.0)
[2021-01-07 04:25] LABS: % SATURATION 9 % (20-39); IRON 17 ug/dL (50-175)
[2021-01-07 04:43] LABS: ALBUMIN 2.3 g/dL (3.4-5.0); CALCIUM 7.4 mg/dL (8.5-10.1); CREATININE 0.7 mg/dL (0.6-1.3); MAGNESIUM 1.5 mg/dL (1.8-2.4); TOTAL BILIRUBIN 4.6 mg/dL (<0.1-1.0); TOTAL PROTEIN 5.6 g/dL (6.4-8.2)
[2021-01-07 04:45] LABS: POTASSIUM 2.7 mmol/L (3.5-5.1)
--- NOTE | 2021-01-07 17:32 | EKG ---
[place] [address] ELECTROCARDIOGRAM REPORT Name: HANG ALFORD Room: [address] ADM IN .R.#: [id number] Admission: 01/06/21 Attend Phys: Artem Rockwell, Discharge: Date of : 47 Date of Service: 01/05/212221 Report #: [id number] THIS REPORT FOR: //name// 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 : 1945 Requested By: Anjali Sears Order Number: [id number] Julio MD: Sukhjinder Liu Measurements Intervals [place] Rate: 89 P: [place]: QRS: 18 QRSD: 119 T: 54 QT: 388 QTc: 473 Interpretive Statements Atrial fibrillation Incomplete right bundle branch block Nonspecific repol abnormality, anterior leads, consider ischemia Compared to ECG 11/30/2020 15:39:17 Early repolarization now present Electronically Signed On 01-07-2021 17:31:57 CDT by Sukhjinder Liu [email or web address] <ELECTRONICALLY SIGNED> By: Sukhjinder Liu MD, FACC 01/07/21 1731 21 21 Sukhjinder Liu MD, FAC /EPI
[2021-01-08 02:02] VITALS: BP 134/65
[2021-01-08 02:06] LABS: HEPATITIS B SURFACE AG Negative (Negative)
[2021-01-08 05:08] LABS: CERULOPLASMIN 24.8 mg/dL (16.0-31.0)
[2021-01-08 06:08] VITALS: BP 127/63
[2021-01-08 07:34] LABS: HEMOGLOBIN 9.9 gm/dL (14.0-18.0); MCV 90.8 fL (80.0-100.0); RBC 3.3 mil/uL (4.50-6.00); RDW-CV 15.7 % (10.5-14.5)
[2021-01-08 07:50] LABS: INR 1.1; PROTIME 11.9 Seconds (9.20-11.50)
[2021-01-08 07:55] LABS: CALCIUM 7.8 mg/dL (8.5-10.1); CREATININE 0.6 mg/dL (0.6-1.3); DIRECT BILIRUBIN 3.7 mg/dL (<0.1-0.3); MAGNESIUM 1.7 mg/dL (1.8-2.4); TOTAL BILIRUBIN 4.3 mg/dL (<0.1-1.0); TOTAL PROTEIN 5.5 g/dL (6.4-8.2)
[2021-01-08 08:00] VITALS: BP 136/68
[2021-01-08 08:04] LABS: POTASSIUM 2.9 mmol/L (3.5-5.1)
[2021-01-08 09:08] LABS: ANTI-DNA SCREEN 1 IU/mL (0-9); ANTI-RNP <0.2 AI (0.0-0.9); ANTI-SSA <0.2 AI (0.0-0.9); ANTIJO-I AB <0.2 AI (0.0-0.9)
[2021-01-08 12:00] VITALS: BP 128/68
[2021-01-08 16:08] VITALS: BP 132/61
[2021-01-08 20:00] VITALS: BP 158/83
[2021-01-09 00:06] VITALS: BP 133/61
[2021-01-09 04:24] LABS: HEMATOCRIT 29.4 % (42.0-52.0); HEMOGLOBIN 9.8 gm/dL (14.0-18.0); MCHC 33.3 g/dL (28.0-37.0); MCV 89.9 fL (80.0-100.0); MPV 8.2 fl. (7.2-11.1); RBC 3.27 mil/uL (4.50-6.00); RDW-CV 15.7 % (10.5-14.5); WBC 11.7 thou/uL (4.0-11.0)
[2021-01-09 04:34] LABS: ALBUMIN 1.9 g/dL (3.4-5.0); CALCIUM 7.5 mg/dL (8.5-10.1); CREATININE 0.6 mg/dL (0.6-1.3); MAGNESIUM 1.7 mg/dL (1.8-2.4); TOTAL BILIRUBIN 4.5 mg/dL (<0.1-1.0); TOTAL PROTEIN 5.3 g/dL (6.4-8.2)
[2021-01-09 04:36] VITALS: BP 140/51
[2021-01-09 04:37] LABS: POTASSIUM 2.9 mmol/L (3.5-5.1)
[2021-01-09 08:00] VITALS: BP 142/73
[2021-01-09] MEDS ORDERED: CARAFATE 1 GM TA1 G1 PO (08:29)
[2021-01-09] MEDS ORDERED: CEFDINIR300 MG PO (08:29)
[2021-01-09] MEDS ORDERED: PROTONIX40 M2 PO (08:29)
[2021-01-09] MEDS ORDERED: DOXYCYCLINE 10100 MG PO (08:29)
[2021-01-09 12:31] VITALS: BP 123/72
--- NOTE | 2021-01-09 14:07 | PATH ---
[address] [address] PATHOLOGY RPT PROCEDURE Name: ANTHONY ALFORD Room: [address] IN .R.#: [id number] Admission: 01/06/21 Date of : 47 Discharge: Report #: [id number] Path Case #: [id number] [facility] Accession Number: [id number] . 01 Material submitted: . gastrointestinal site - FUNDAL BIOPSY FOR GASTRITIS . 01 Clinical history: . SEVERE GASTRITIS GI BLEED INTRACTABLE VOMITING . 02 Diagnosis: Fundal biopsy (for gastritis): - Mild nonspecific active gastritis in association with prominent fresh hemorrhage, negative for granulomas, viral inclusions, Helicobacter pylori organisms and dysplasia. (CELSO:pit 01/09/2021) . Special stain: H. pylori immuno QTP 01/09/2021 1307 Local . 02 Electronically signed: . Tre Phelps MD, Pathologist NPI- [id number] . 01 Gross description: . The specimen is received in formalin, labeled "Anthony Porfirioesther, fundal biopsy for gastritis". Received is a segment of pale pantoja tissue measuring 0.4 cm in maximum dimensions. The specimen is submitted entirely in cassette A1. (CAA; 01/08/2021) QAC/QAC 01/08/2021 1200 Local . 02 Pathologist provided ICD-10: K29.50, K92.2 . 02 CPT . 657943, M39757 Specimen Comment: A courtesy copy of this report has been sent to [phone] Specimen Comment: [phone], Specimen Comment: Report sent to ,DR LALA / DR CLINE Performed at: [address] [id number] MD Thaddeus Medina MD Phone: [phone] Performed at: [address] [address] PATHOLOGY RPT PROCEDURE Name: ANTHONY AFLORD Room: [address] IN ..#: [id number] Admission: 01/06/21 Date of : 47 Discharge: Report #: [id number] Path Case #: [id number] [address] [id number] MD Tre Phelps MD Phone: [phone]
== END 2021-01-09 15:31 | DRG 177 ==
LOC: M.ERS 22:05 → M.TBA-ER 01-06 02:10 → M.ICU 01-06 02:10 → M.2W 01-06 02:10 → M.ICU 01-06 03:07 → M.2W 01-06 18:00
PROVIDERS: Internal Medicine; Internal Medicine Gastroenterology; Personal Emergency Response Attendant; ADMIT Internal Medicine; ATTEND Internal Medicine
PROC: 0DB68ZX Excision of Stomach, Via Natural or Artificial Opening Endoscopic, Diagnostic (ICD-10-PCS; principal; 2021-01-06)
PROC: 0DB58ZX Excision of Esophagus, Via Natural or Artificial Opening Endoscopic, Diagnostic (ICD-10-PCS; principal; 2021-01-06)
DX: J69.0 Pneumonitis due to inhalation of food and vomit (principal); K29.71 Gastritis, unspecified, with bleeding; I50.32 Chronic diastolic (congestive) heart failure; I42.9 Cardiomyopathy, unspecified; E11.9 Type 2 diabetes mellitus without complications; G25.81 Restless legs syndrome; K52.9 Noninfective gastroenteritis and colitis, unspecified; K81.9 Cholecystitis, unspecified; K44.9 Diaphragmatic hernia without obstruction or gangrene; G20 Parkinson's disease; F02.80 Dementia in other diseases classified elsewhere, unspecified severity, without behavioral disturbance, psychotic disturbance, mood disturbance, and anxiety; K21.00 Gastro-esophageal reflux disease with esophagitis, without bleeding; I11.0 Hypertensive heart disease with heart failure; F41.9 Anxiety disorder, unspecified; Z20.822 Contact with and (suspected) exposure to COVID-19; Z79.4 Long term (current) use of insulin; Z79.899 Other long term (current) drug therapy; Z79.82 Long term (current) use of aspirin

== ENCOUNTER 2021-01-13 14:28 | Inpatient (IN) | payer BC ==
[~2021-01-13] VITALS: Ht 185.4 cm; Wt 115.7 kg
--- NOTE | ~2021-01-13 | EMS ---
[facility] [address] [place] [address] EMS Patient Care Report Name: HANG ALFORD Room: [address] IN [facility].#: [id number] Admission: 01/13/21 Attend Phys: Alonso Staton Discharge: Date of : 47 Report #: [id number] THIS REPORT FOR: //name// Report Transmitted: 01/13/2021 20:17 EMS Care [place] [facility] [place] Incident [id number] @ 01/13/2021 13:57 Incident Location [address] [place] [address] Patient HANG ALFORD Male, 75 Years 1945 Patient Address [address] [place] [address] Patient History Parkinson's Disease,Congestive Heart Failure (CHF),Cancer - Other Cancer Condition,Atrial Fibrillation,Endocrine Condition - Other,Unspecified dementia,Gastrointesinal Hemorrhage, Patient Allergies No known allergies, Chief Complaint Abdominal pain/discomfort Disposition Transported No Lights/[place] Dispatch Reason Abdominal Pain/Problems Transported To [facility] Narrative [facility] WAS DISPATCHED TO A ALF FACILITY FOR A SICK. [facility] ARRIVED ON SCENE WITHOUT INCIDENT. THE PATIENT WHO GOES BY HANG WAS FOUND ALERT AND ORIENTED IN NO APPARENT DISTRESS. STAFF STATE THAT HANG HAS HAD BAD LABS AND THEY ARE GETTING WORSE. HANG IS COMPLAINING OF ABDOMINAL PAIN [facility] [address] [place] [address] EMS Patient Care Report Name: HANG ALFORD Room: [address] IN [facility].#: [id number] Admission: 01/13/21 Attend Phys: Alonso Staton Discharge: Date of : 47 Report #: [id number] THAT GETS WORSE WITH PALPATION. HANG IS MOVED OVER TO THE COT WHERE THE STRAPS ARE FASTENED AND THE RAILS PLACED IN THE UPRIGHT POSITION. THE COT IS SECURED IN THE BACK OF THE AMBULANCE WITH THE DOORS CLOSED. [facility] BEGAN TRANSPORT. EN ROUTE HANG REST ON THE COT IN NO APPARENT DISTRESS. VITALS ARE TAKEN AND MONITORED MEDICAL HISTORY AND ALLERGIES ARE RECEIVED. RADIO REPORT IS GIVEN TO THE HOSPITAL WITH NO QUESTIONS OR ORDERS RECEIVED. [facility] ARRIVED AT DESTINATION WITHOUT INCIDENT. PATIENT CARE AND REPORT IS GIVEN TO STAFF HANG IS MOVED OVER TO THE BED IN ROOM 4. [facility] CLEAR. TOI WARREN, EMT-P Initial Vitals @14:17Pain: 04/27, @14:25Pain: 04/27, @14:14SpO2: 97, @14:16SpO2: 98, @14:25SpO2: 98, @14:14P: 90,R: 18,BP: 177/84, @14:16P: 85,R: 18,BP: 139/71, @14:25P: 79,R: 18,BP: 136/71, @14:14GCS: 15, @14:16GCS: 15, @14:25GCS: 15, @14:04 Assessments @14:04MENTAL:SKIN:HEENT:LUNG SOUNDS:ABDOMEN:PELVIS//GI:EXTREMITIES:PULSE:NEURO: Impression Other general symptoms and signs Timeline 13:56,Call Received 13:56,Dispatch Notified 13:56,Psap Call 13:57,Dispatched 13:57,En Route 14:02,On Scene 14:04,At Patient 14:04,BP: / M,PULSE: ,RR: R,SPO2: Ox,ETCO2: ,BG: ,PAIN: ,GCS: , 14:14,BP: / M,PULSE: ,RR: R,SPO2: 97 Ox,ETCO2: ,BG: ,PAIN: ,GCS: , 14:14,BP: 177/84 M,PULSE: 90,RR: 18 R,SPO2: Ox,ETCO2: ,BG: ,PAIN: ,GCS: , 14:14,BP: / M,PULSE: ,RR: R,SPO2: Ox,ETCO2: ,BG: ,PAIN: ,GCS: 15, 14:16,BP: / M,PULSE: ,RR: R,SPO2: 98 Ox,ETCO2: ,BG: ,PAIN: ,GCS: , 14:16,BP: 139/71 M,PULSE: 85,RR: 18 R,SPO2: Ox,ETCO2: ,BG: ,PAIN: ,GCS: , [place] [address] EMS Patient Care Report Name: HANG ALFORD Room: [address] IN .R.#: [id number] Admission: 01/13/21 Attend Phys: Alonso Staton Discharge: Date of : 47 Report #: [id number] 14:16,BP: / M,PULSE: ,RR: R,SPO2: Ox,ETCO2: ,BG: ,PAIN: ,GCS: 15, 14:17,Depart Scene 14:17,BP: / M,PULSE: ,RR: R,SPO2: Ox,ETCO2: ,BG: ,PAIN: 7,GCS: , 14:25,BP: / M,PULSE: ,RR: R,SPO2: Ox,ETCO2: ,BG: ,PAIN: 7,GCS: , 14:25,BP: / M,PULSE: ,RR: R,SPO2: 98 Ox,ETCO2: ,BG: ,PAIN: ,GCS: , 14:25,BP: 136/71 M,PULSE: 79,RR: 18 R,SPO2: Ox,ETCO2: ,BG: ,PAIN: ,GCS: , 14:25,BP: / M,PULSE: ,RR: R,SPO2: Ox,ETCO2: ,BG: ,PAIN: ,GCS: 15, 14:26,At Destination 14:43,Call Closed Disclaimer v1.1 Copyright 2020 [employer] This EMS Care Summary contains data elements from the applicable legal record (which may be displayed differently). It is designed to provide pertinent information for the following purposes: continuity of care, clinical quality, and state data reporting. The complete legal record is available to ED staff and administrators of the receiving hospital in [employer]'s Patient Tracker. All data is provided "as is."
--- NOTE | ~2021-01-13 | PROC ---
[address] [address] PROCEDURE REPORT Name: HANG ALFORD Room: [address] IN M.R.#: [id number] Admission: 01/13/21 Attend Phys: Alonso Staton Discharge: 01/14/21 Date of : 47 Report #: [id number] THIS REPORT FOR: cc: Cherry Toledo MD, Lin W. MD [facility],Medical Records Staff ~ For GI report, please see the Provation report in Perceptive 7 content. By: 1119Medical Records Staff [facility] /DEL
[~2021-01-13 14:28] MED LIST changes: +ACETAMINOPHEN325 MG PO; +CARAFATE 1 GM TA1 G1 PO; +CEFDINIR300 MG PO; +DOXYCYCLINE 10100 MG PO; +IPRAT-ALBUT 0.5-3 ML INH; +MUCUS-ER MAX1200 MG PO; +PROTONIX40 M2 PO; +VANCOCIN 125 M125 M1 PO; +ZOFRAN4 MG PO
[2021-01-13 14:29] VITALS: BP 109/70
[2021-01-13] MEDS ORDERED: EFFIENT10 MG PO (14:39)
[2021-01-13] MEDS ORDERED: VANCOCIN 125 M125 M1 PO (14:39)
[2021-01-13 17:08] LABS: HEMATOCRIT 22.8 % (42.0-52.0); HEMOGLOBIN 7.7 gm/dL (14.0-18.0); MCH 29.5 pg (26.0-34.0); MCHC 33.6 g/dL (28.0-37.0); MCV 87.6 fL (80.0-100.0); MPV 7.5 fl. (7.2-11.1); NUCLEATED RBCS 0 /100WBC; PLATELET COUNT* 256 thou/uL (150-400); RDW-CV 15.8 % (10.5-14.5); WBC 20.7 thou/uL (4.0-11.0)
[2021-01-13 17:16] LABS: CALCIUM 7.4 mg/dL (8.5-10.1); CREATININE 0.4 mg/dL (0.6-1.3)
[2021-01-13 17:18] LABS: APTT 28.1 Seconds (25.0-31.3); INR 1.3; POTASSIUM 3.4 mmol/L (3.5-5.1); PROTIME 13.6 Seconds (9.20-11.50)
[2021-01-13 17:20] LABS: URINE BLOOD TRACE (Negative); URINE CLARITY CLEAR; URINE COLOR BROWN; URINE GLUCOSE-RANDOM TRACE (Negative); URINE KETONES 1+ (Negative); URINE LEUKOCYTES-REFLEX NEGATIVE (Negative); URINE PROTEIN 2+ (Negative); URINE SPECIFIC GRAVITY 1.025 (1.005-1.030)
[2021-01-13 17:21] LABS: ICTOTEST (BILI CONFIRMATORY) Positive (Negative); URINE BILIRUBIN 3+ (Negative); URINE NITRITE-REFLEX POSITIVE (Negative)
[2021-01-13 17:21] LABS: ALBUMIN 1.5 g/dL (3.4-5.0); TOTAL PROTEIN 4.9 g/dL (6.4-8.2)
[2021-01-13 17:26] LABS: CRYSTALS None Seen /LPF (None Seen); MUCUS 4-6 Moderate strn/LPF (None Seen); SQUAMOUS 0-3 Few /LPF (0-3); URINE RBC 0-2 Rare /HPF (0-2); URINE WBC-REFLEX 0-5 Rare /HPF (0-5)
[2021-01-13 17:27] LABS: HYALINE CASTS 0-3 Few /LPF (None Seen)
[2021-01-13 17:33] LABS: ABSOLUTE LYMPHOCYTES 0.8 thou/uL (0.8-5.3); ABSOLUTE MONOCYTES 0.2 thou/uL (0.0-1.2); ABSOLUTE NEUTROPHILS 19.7 thou/uL (1.6-8.1); ANISOCYTOSIS Occasional; HYPOCHROMASIA Occasional; PLATELET ESTIMATE ADEQUATE
[2021-01-13 19:39] VITALS: BP 110/65
[2021-01-13 20:00] VITALS: BP 142/98
[2021-01-14 04:00] VITALS: BP 153/65
[2021-01-14 07:47] LABS: ALBUMIN 1.5 g/dL (3.4-5.0); DIRECT BILIRUBIN 4.7 mg/dL (<0.1-0.3); TOTAL BILIRUBIN 5.7 mg/dL (<0.1-1.0)
[2021-01-14 07:50] VITALS: BP 141/65
--- NOTE | 2021-01-14 09:47 | EKG ---
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: CCD : 1945 Requested By: Maxwell Hernandez Order Number: [id number] MD: Juan Aguilar Measurements Intervals [place] Rate: 88 P: [place]: QRS: -1 QRSD: 119 T: 21 QT: 415 QTc: 503 Interpretive Statements Atrial fibrillation Nonspecific intraventricular conduction delay Borderline T abnormalities, inferior leads Baseline wander in lead(s) II,III,aVR,aVF Compared to ECG 01/05/2021 22:22:24 no change Electronically Signed On 01-14-2021 9:47:00 CDT by Juan Aguilar [email or web address] <ELECTRONICALLY SIGNED> By: Juan Aguilar MD, FACC 01/14/21 0947 1447 1447 Juan Aguilar MD, FAC /EPI
== END 2021-01-14 21:44 | disposition short-term general hospital (02) | DRG 444 ==
LOC: M.ERS 14:28 → M.TBA-ER 18:40 → M.2W 18:40
PROVIDERS: Emergency Medicine Emergency Medical Services; ADMIT Internal Medicine; ATTEND Internal Medicine
PROC: 0HQ4XZZ Repair Neck Skin, External Approach (ICD-10-PCS; principal; 2021-01-13)
PROC: 05HF33Z Insertion of Infusion Device into Left Cephalic Vein, Percutaneous Approach (ICD-10-PCS; 2021-01-14)
PROC: B54NZZA Ultrasonography of Left Upper Extremity Veins, Guidance (ICD-10-PCS; 2021-01-14)
PROC: BF101ZZ Fluoroscopy of Bile Ducts using Low Osmolar Contrast (ICD-10-PCS; 2021-01-14)
PROC: 0F798ZZ Dilation of Common Bile Duct, Via Natural or Artificial Opening Endoscopic (ICD-10-PCS; 2021-01-14)
PROC: 0DJ08ZZ Inspection of Upper Intestinal Tract, Via Natural or Artificial Opening Endoscopic (ICD-10-PCS; 2021-01-14)
DX: K81.0 Acute cholecystitis (principal); E43 Unspecified severe protein-calorie malnutrition; N39.0 Urinary tract infection, site not specified; R65.10 Systemic inflammatory response syndrome (SIRS) of non-infectious origin without acute organ dysfunction; A04.9 Bacterial intestinal infection, unspecified; T82.594A Other mechanical complication of infusion catheter, initial encounter; I50.22 Chronic systolic (congestive) heart failure; K92.0 Hematemesis; K76.6 Portal hypertension; J98.11 Atelectasis; G20 Parkinson's disease; F41.9 Anxiety disorder, unspecified; I11.0 Hypertensive heart disease with heart failure; N28.1 Cyst of kidney, acquired; E11.9 Type 2 diabetes mellitus without complications; G25.81 Restless legs syndrome; K21.00 Gastro-esophageal reflux disease with esophagitis, without bleeding; I48.91 Unspecified atrial fibrillation; K31.89 Other diseases of stomach and duodenum; K44.9 Diaphragmatic hernia without obstruction or gangrene; Y92.238 Other place in hospital as the place of occurrence of the external cause; K83.8 Other specified diseases of biliary tract; K76.89 Other specified diseases of liver; K73.8 Other chronic hepatitis, not elsewhere classified; X58.XXXA Exposure to other specified factors, initial encounter; Y83.8 Other surgical procedures as the cause of abnormal reaction of the patient, or of later complication, without mention of misadventure at the time of the procedure; Z20.822 Contact with and (suspected) exposure to COVID-19; Z79.82 Long term (current) use of aspirin; Z79.899 Other long term (current) drug therapy; Z79.4 Long term (current) use of insulin; Y93.89 Activity, other specified; Y99.8 Other external cause status; Z68.33 Body mass index [BMI] 33.0-33.9, adult; Z66 Do not resuscitate